=== PATIENT | male | born 1955 | race Caucasian/White ===

== ENCOUNTER 2020-10-24 17:13 | Outpatient (CLI) | payer MEDICARE, SELFPAY ==
--- NOTE | ~2020-10-24 | XR_ITS ---
EXAMINATION: XR chest 2V DATE: 10/24/2020 17:28 INDICATION: Cough and fever. TECHNIQUE: Frontal and lateral views of the chest were obtained. COMPARISON: Chest 2 views 04/18/2018, CT abdomen and pelvis 12/14/2013 FINDINGS: There are mild airspace opacities in right lower lobe. No pleural effusion or pneumothorax. The heart size is normal. Calcified right hilar lymph nodes are consistent with old granulomatous di sease. There are old healed left rib fractures. IMPRESSION: 1. Mild airspace opacities in right lower lobe, consistent with atelectasis versus pneumonia. Reviewed, dictated and finalized at location A. IMPRESSION: 1. Mild airspace opacities in right lower lobe, consistent with atelectasis josef екатерина pneumonia.
== END 2020-10-24 17:14 | disposition home or self-care (01) ==
LOC: ANHIMG 17:16
PROVIDERS: PCP Internal Medicine; Visit Provider Internal Medicine
DX: R05 Cough (principal); R91.8 Other nonspecific abnormal finding of lung field
CPT/HCPCS: 71046

== ENCOUNTER 2020-12-19 15:07 | Outpatient (CLI) | payer MEDICARE, SELFPAY ==
--- NOTE | ~2020-12-19 | CT_ITS ---
EXAMINATION: CT hip LT wo con DATE: 12/19/2020 15:36 INDICATION: Presence of left hip artificial joint. TECHNIQUE: Computed tomography (CT) of the left hip was performed without intravenous contrast. Autom ated exposure control and iterative reconstruction technique were employed. The dose-length product w as 561.04 mGy-cm. COMPARISON: CT abdomen and pelvis 12/14/2013 FINDINGS: There is a total left hip arthroplasty in near-anatomic alignment. One of the acetabular sc rews passes through the bone into the iliopsoas muscle. There is no asymmetric liner wear. No signifi cant periprosthetic lucency to suggest loosening or infection. No fracture. IMPRESSION: 1. Total left hip arthroplasty in near-anatomic alignment. Reviewed, dictated and finalized at location B.
== END 2020-12-19 15:08 | disposition home or self-care (01) ==
PROVIDERS: PCP Internal Medicine; Visit Provider Orthopaedic Surgery
DX: Z96.642 Presence of left artificial hip joint (principal)
CPT/HCPCS: 73700

== ENCOUNTER 2020-12-20 11:39 | Outpatient (CLI) | payer MEDICARE, SELFPAY ==
--- NOTE | ~2020-12-20 | NM_ITS ---
EXAMINATION: NM bone 3 phase DATE: 12/20/2020 15:17 INDICATION: Left hip pain. TECHNIQUE: 24.5 mCi Tc-99m HDP by intravenous route. Scintigrams of the pelvis and bilateral hips we re obtained in angiographic, blood pool, and delayed phases. COMPARISON: CT dated 12/19/2020 and 12/14/2013 FINDINGS: No foci of abnormal increased activity in the or proximal thighs on the lower abdomen, pelvis and pro ximal thighs on the angiographic or immediate blood pool images. On the delayed images there photopen ic defects consistent bilateral total hip arthroplasties. There is mild peripheral increased uptake a bout the femoral stems both arthroplasties, slightly more prominent on the right. There is nonspecifi c asymmetric increased uptake seen on the delayed images at the left supra-acetabular region which dillon ggests possibility of loosening although no significant periprosthetic lucency is evident on the CT i mages. IMPRESSION: 1. Nonspecific asymmetric increased uptake along the cephalad margin of the acetabular component of a left total hip arthroplasty which suggests possibility of loosening orbital no corresponding peripr osthetic lucency is seen at the bone arthroplasty interface on the prior CT. Infection or fracture is considered unlikely given the absence of significant increased uptake on the angiographic and blood pool images or evident correlate on the CT images. Reviewed, dictated and finalized at location A. IMPRESSION: 1. Nonspecific asymmetric increased uptake along the cephalad margin of the ac etabular component of a left total hip arthroplasty which suggests possibility of loosening orbital no corresponding periprosthetic lucency is seen at the bon e arthroplasty interface on the prior CT. Infection or fracture is considered u nlikely given the absence of significant increased uptake on the angiographic a nd blood pool images or evident correlate on the CT images.
== END 2020-12-20 11:40 | disposition home or self-care (01) ==
LOC: ANHIMG 11:42
PROVIDERS: PCP Internal Medicine; Visit Provider Orthopaedic Surgery
DX: T85.698A Other mechanical complication of other specified internal prosthetic devices, implants and grafts, initial encounter (principal)
CPT/HCPCS: 78315; A9561

== ENCOUNTER 2020-12-26 11:52 | Inpatient (IN) | payer MEDICARE, SELFPAY ==
[2020-12-26] VITALS (27 sets, daily range): BP systolic 96–154; BP diastolic 59–88; PULSE 60–90; RESP 11–26; TEMP 36.1–36.8; O2SAT 98–100; BMI 29.4
--- NOTE | ~2020-12-26 | CT_ITS ---
EXAMINATION: CT abdomen pelvis wo con DATE: 12/26/2020 15:23 INDICATION: Acute renal failure. TECHNIQUE: Computed tomography (CT) of the abdomen and pelvis was performed without intravenous contr ast. Automated exposure control and iterative reconstruction technique were employed. The dose-length product was 1236.06 mGy-cm. COMPARISON: CT abdomen and pelvis 12/14/2013 FINDINGS: The visualized portions of the lung bases demonstrate calcified right hilar lymph nodes, co nsistent with old granulomatous disease. No pleural effusion. The heart size is normal. There are cor onary artery calcifications. No pericardial effusion. There is bilateral gynecomastia. There is a sma ll sliding hiatal hernia. There are surgical changes in the stomach. The liver and spleen are normal. There are gallstones in the gallbladder, which is distended, likely secondary to fasting. The pancre as and adrenal glands are normal. There is a 14 mm cyst in right kidney. There is a 13 mm mass of the left kidney measuring soft tissue attenuation. There is mild left hydronephrosis and hydroureter. Th ere is a 6 mm stone in proximal left ureter. The rectum is distended and stool-filled. There is diver ticulosis of the colon without evidence of diverticulitis. There are no dilated loops of bowel. The a ppendix is normal. There are no pathologically enlarged lymph nodes. There is no free intraperitoneal fluid. There are bilateral hip arthroplasties. There is severe lumbar spondylosis. There are bridgin g endplate osteophytes at multiple levels in the spine, consistent with diffuse idiopathic skeletal h yperostosis (DISH). IMPRESSION: 1. 6 mm stone in proximal left ureter with mild left hydronephrosis and hydroureter. 2. 13 mm left kidney mass that demonstrated contrast enhancement on 12/14/2013 suspicious for neoplasm with interval increase in size. Reviewed, dictated and finalized at location A. IMPRESSION: 1. 6 mm stone in proximal left ureter with mild left hydronephrosis and hydrour eter. 2. 13 mm left kidney mass that demonstrated contrast enhancement on 12/14/2013 s uspicious for neoplasm with interval increase in size.
--- NOTE | ~2020-12-26 | XR_ITS ---
XR retrograde pyelo w/stent LT DATE: 12/26/2020 19:47 INDICATION: Left ureteral calculus. Left stent placement. TECHNIQUE: 60.2 seconds fluoroscopy time 1137.92 radcm2 COMPARISON: 12/26/2020 CT abdomen pelvis FINDINGS: There is a focal stricture at the left ureter at the upper sacral area. Left internal urinary stent placement, the proximal pigtail overlying the left renal pelvis, distal p igtail overlying the base of the urinary bladder. Vas deferens calcifications, consistent with diabetes. Bilateral total hip arthroplasty. IMPRESSION: Left internal urinary stent placement Reviewed, dictated and finalized at Location [facility]. Reviewed, dictated and finalized at location A.
--- NOTE | ~2020-12-26 | XR_ITS ---
EXAMINATION: XR abdomen/kub 1V DATE: 12/27/2020 15:55 INDICATION: Kidney stone. TECHNIQUE: A supine view of the abdomen was obtained. COMPARISON: CT abdomen and pelvis 12/26/2020 FINDINGS: There are no dilated loops of bowel. There is a left internal ureteral stent in expected po sition. There are bilateral total hip arthroplasties. IMPRESSION: 1. Left internal ureteral stent in expected position. No visible stone. Reviewed, dictated and finalized at location A.
[2020-12-26 12:27] LABS: Basophils Absolute Auto 0.1 K/mm3 (0.0-0.1); Basophils Percent Auto 0.7 % (0.2-1.2); Eosinophils Absolute Auto 0.2 K/mm3 (0-0.3); Eosinophils Percent Auto 2.6 % (0-4.4); Hematocrit 34.8 % (42.0-52.0); Immature Granulocyte Absolute 0.02 K/mm3 (0.00-0.031); Immature Granulocyte Percent A 0.3 % (0-0.5); Lymphocytes Absolute Auto 1.65 K/mm3 (0.9-3.2); Mean Corpuscular HGB Conc 31.6 g/dl (32-36); Mean Corpuscular Hemoglobin 29.6 pg (26-34); Mean Corpuscular Volume 93.5 fl (80-100); Mean Platelet Volume 10.1 fl (7.4-10.4); Monocytes Absolute Auto 0.5 K/mm3 (0.1-0.6); Neutrophils Absolute Auto 4.5 K/mm3 (1.3-6.7); Neutrophils Percent Auto 65.4 % (45.5-73.1); Platelet Count Result 211 k/mm3 (150-375); Red Blood Count 3.72 M/mm3 (4.6-6.20); Red Cell Distribution Width 15.5 % (11.5-14.5); White Blood Count 6.9 K/mm3 (4.5-10.0)
[2020-12-26 13:01] LABS: Alanine Aminotransferase 18 U/L (4-50); Albumin Level 4.7 g/dL (3.5-5.1); Alkaline Phosphatase 83 U/L (38-126); Anion Gap 13 mmol/L (8-16); Aspartate Amino Transferase 18 U/L (17-59); Bilirubin,Total 0.4 mg/dL (0.2-1.3); Blood Urea Nitrogen 120 mg/dL (9-20); Calcium 9.9 mg/dL (8.4-10.2); Carbon Dioxide 11 mmol/L (22-30); Chloride 115 mmol/L (98-107); Estimated CRCL calculation 11 ml/min; Estimated Glomerular Filt Rate 9; Glucose 135 mg/dL (65-110); Potassium 7.1 mmol/L (3.4-5.0); Sodium 139 mmol/L (137-145)
--- NOTE | 2020-12-26 13:04 | ECG_ITS ---
Measurements Intervals [place] Rate: 58 P: 33 [place]: 144 QRS: -14 QRSD: 94 T: 19 QT: 376 QTc: 370 Interpretive Statements SINUS BRADYCARDIA BASELINE ARTIFACT- I, II, III, AVR, AVL, AVF, V1, V3-V6 BORDERLINE ECG Electronically Signed On 12-26-2020 17:17:40 CDT by Herrera Lizama D.O.
--- NOTE | 2020-12-26 13:16 | PC.NURSE ---
Per edp to hold insulin and calcium until pt repeat cmp results.
--- NOTE | 2020-12-26 13:32 | ED.WEAKNESS ---
HPI - Weakness General Chief complaint: Weakness Stated complaint: weakness Time Seen by Provider: 12/26/20 13:03 Source: patient History of Present Illness HPI Narrative: Patient presents with generalized weakness. Patient reports he was diagnosed with Covid in October he recovered however since then he reports he has been feeling weak and is been getting progressively worse patient called his primary care doctor and is scheduled for a follow-up appointment however it was not for few weeks and is concerned so came to the ER for evaluation. Denies any chest pain, shortness of breath, nausea, vomiting, abdominal pain, lightheadedness Related Data Home Medications Medication Instructions Recorded Confirmed hydrochlorothiazide 25 mg PO BID 12/26/20 12/26/20 hydrocodone-acetaminophen 0.5 tablet PO Q12H PRN 12/26/20 12/26/20 Allergies Allergy/AdvReac Type Severity Reaction Status Date / Time No Known Allergies Allergy Unknown Verified 12/26/20 18:51 Review of Systems Review of Systems: CONSTITUTIONAL: Denies fever, chills, or sweats. EYES: Denies visual changes, redness, or discharge. ENT: Denies rhinorrhea, congestion, sore throat, or otalgia. CARDIOVASCULAR: Denies chest pain, palpitations, or edema. RESPIRATORY: Denies cough or dyspnea. GASTROINTESTINAL: Denies abdominal pain, nausea, vomiting, or diarrhea. GENITOURINARY: Denies dysuria or hematuria. SKIN: Denies rash or itching. MUSCULOSKELETAL: Denies back pain, joint pain, or myalgia. NEUROLOGIC: Denies headache, numbness, dizziness, or focal weakness. PSYCHIATRIC: Denies anxiety or depression. All systems reviewed & are unremarkable except as noted in HPI and below PMFSH Past Medical History Medical History Arthritis COVID-19 (10/2020) Essential hypertension Gout Obstructive sleep apnea Patient does not use CPAP. Type 2 diabetes mellitus without complications Hemoglobin A1c was 6.9% on 09/22/2020. Surgical History Surgical History History of bilateral carpal tunnel release History of bilateral hip replacements History of bilateral knee replacement History of colonoscopy with polypectomy History of esophagogastroduodenoscopy With esophageal dilatation. History of laparoscopic adjustable gastric banding History of repair of left rotator cuff Status post open reduction with internal fixation (ORIF) of fracture of ankle Right. Family History Family History Father Lung disease Mother Heart disease Sibling No problems noted. Other Family history of arthritis Family history of heart disease in male family member before age 55 Social History Social History Social History: Surrogate decision maker: Kathy Aviles, spouse. Code status: Full code. Smoking status: Never smoker Second hand tobacco smoke exposure: No Alcohol intake: current Drinks per week: 1 Substance use: current Substance use type: marijuana Additional living arrangements comments: Resides in [place] with his . Additional occupation/education comments: Retired. Spiritual care concerns: No Exam Narrative: GENERAL: Well-appearing, well-nourished, and in no acute distress. HEAD: Normocephalic, atraumatic. EYES: PERRLA and EOMI. ENT: Nares clear, no rhinorrhea or epistaxis. Mucous membranes moist. NECK: Supple. No masses. No JVD CHEST: Clear to auscultation. No respiratory distress. No wheezes rales or rhonchi HEART: Regular rate and rhythm. No murmur heard. Normal peripheral pulses. ABDOMEN: Soft, nontender, nondistended, normal active bowel sounds. EXTREMITIES: Normal range of motion. No edema. SKIN: Warm, dry, no rash. NEURO: No focal deficits. Alert and oriented x3. PSYCH: Normal mood and affect.
[2020-12-26 13:56] LABS: Alanine Aminotransferase 17 U/L (4-50); Albumin Level 4.6 g/dL (3.5-5.1); Alkaline Phosphatase 76 U/L (38-126); Anion Gap 15 mmol/L (8-16); Aspartate Amino Transferase 18 U/L (17-59); Bilirubin,Total 0.2 mg/dL (0.2-1.3); Blood Urea Nitrogen 118 mg/dL (9-20); Calcium 9.5 mg/dL (8.4-10.2); Carbon Dioxide 10 mmol/L (22-30); Chloride 111 mmol/L (98-107); Estimated CRCL calculation 11 ml/min; Estimated Glomerular Filt Rate 9; Glucose 137 mg/dL (65-110); Potassium 6.9 mmol/L (3.4-5.0); Sodium 136 mmol/L (137-145)
--- NOTE | 2020-12-26 14:22 | PC.NURSE ---
Spoke with EDP Troy about concern for not giving pt dextrose with insulin order. Per edp I just don't feel like everything needs to be IV, just have him sip on some juice, ya know? I again expressed my concern and edp gave no new orders. Apple juice provided with medications, see mar.
[2020-12-26] MEDS: INSULIN HUMAN REGULAR (*BKC) 100 UNITS/ML 10 UNITS IV PUSH (14:31)
[2020-12-26] MEDS: SODIUM POLYSTYRENE SULFONONATE 15 GM/60 ML BTL 30 GM PO (14:31)
[2020-12-26] MEDS: CALCIUM GLUCONATE 1,000 MG/10 ML VIAL 1000 MG IV PUSH (14:31)
[2020-12-26 15:14] LABS: Glucose Point of Care 123 mg/dl (65-105)
[2020-12-26 15:14] LABS: Glucose Point of Care 112 mg/dl (65-105)
--- NOTE | 2020-12-26 15:24 | PC.NURSE ---
pT ATTEMPTING UA
[2020-12-26 15:37] LABS: Magnesium 2.7 mg/dL (1.6-2.3)
[2020-12-26 16:01] LABS: Add Urine Microscopic? YES; Appearance Urine Clear (Clear); Bilirubin Urine Negative (Negative); Blood Urine 3+ (Negative); Color Urine Yellow (Yellow); Glucose Urine UA Negative (Negative); Ketones Urine Negative (Negative); Leukocyte Esterase Ur Negative LEU/UL (Negative); Nitrate Urine Negative (Negative); Protein Urine 1+ mg/dL (Negative); Specific Grav Ur 1.015 (1.001-1.035); Urobilinogen Urine 0.2 mg/dL (<2.0)
--- NOTE | 2020-12-26 16:34 | PC.NURSE ---
Attempted report to billy redding, refused, to call back.
--- NOTE | 2020-12-26 16:46 | PC.NURSE ---
Report given to billy redding for [facility] [id number]
[2020-12-26 16:50] LABS: RBC Urine 0-2 /hpf (0-2); Squamous Epithelial Cell Urine Few /hpf (Few)
--- NOTE | 2020-12-26 17:00 | PM.IMHP ---
H&P: HPI History of Present Illness Date/Time: 12/26/20 17:00 Chief Complaint: Generalized weakness. Narrative: This is a 65-year-old male with hypertension and diabetes who presented to the emergency department earlier today via private vehicle from home for evaluation of generalized weakness. He received the Zaheer and Zaheer COVID vaccine in July 2020 but unfortunately did contract COVID in October 2020. Since that time he feels as though he is just not bounce back to his usual state of health. He reports aches and pains for which he takes 400 mg of ibuprofen daily, cotton mouth causing him to feel thirsty all the time, frequent but mild nose bleeds, nausea with poor appetite, and an unintentional 25 lb weight loss. For the last couple of days he has felt increasingly weak and has been feeling lightheaded/dizzy when bending over. Yesterday he ran an errand and when he got home and walked into the house he had to sit and rest for 10 minutes before he had the energy to get back up again. He try to make an appointment with his primary care provider but was told he could not get in until after Labor Day and thus he came into the emergency room today. His vital signs were stable on arrival to the emergency department. Labs done today show an acute kidney injury with a BUN and creatinine of 120 and 6.10 respectively as well as pretty significant hyperkalemia with a potassium of 7.1 although no EKG changes were noted. A CT of the abdomen and pelvis showed a 6 mm stone in the proximal left ureter with mild left hydronephrosis and hydroureter as well as a 13 mm left kidney mass which did demonstrate contrast enhancement on CT scan on 12/14/2013, suspicious for neoplasm with interval increase in size. With further questioning he has no history of kidney stones and really has no symptoms of such at this time. Specifically he has not had dysuria, hematuria, low back pain, flank pain, or groin pain. The patient has been on lisinopril for many years and was started on hydrochlorothiazide approximately 4 months ago. He has been taking 400 mg of ibuprofen daily for quite some time. He has not noticed a change in urine output or darkening of his urine. He denies difficulties urinating and has no concerns for urinary retention. He has no known history of kidney disease or autoimmune disease. He has no known family history of kidney disease however he reports that his dad at age 47 and he had a cousin in her early 50s under similar circumstances due to ?a rare lung disease? though he does not know any specifics they may have had some kidney issues as well. Review of Systems Review of Systems: Twelve systems were reviewed with pertinent positives and negatives as per HPI. No fever, chills, or sweats. No headache. No syncope. No anosmia or dysgeusia. He denies rash and lesion. No hematuria. He has had mild aches and pains but no arthralgias or swollen/red joints. No lymphadenopathy. Except as documented, all other systems were reviewe Surrogate decision maker: Code status: [facility] Past Medical History Medical History Arthritis COVID-19 (10/2020) Essential hypertension Gout Obstructive sleep apnea Patient does not use CPAP. Type 2 diabetes mellitus without complications Hemoglobin A1c was 6.9% on 09/22/2020. Surgical History Surgical History (Updated 12/26/20 @ 22:37 by Radha Shields PA-C) History of bilateral carpal tunnel release History of bilateral hip replacements History of colonoscopy with polypectomy History of esophagogastroduodenoscopy With esophageal dilatation. History of repair of left rotator cuff History of Addison-en-Y gastric bypass Status post open reduction with internal fixation (ORIF) of fracture of ankle Right. Family History Family History (Updated 12/26/20 @ 22:40 by Radha Shields PA-C) Father , Father age 47 after a short illness and from a ?rare saud
[2020-12-26 17:39] LABS: Hemoglobin A1C 7.1 % (<5.7)
[2020-12-26 17:42] LABS: CRP < 0.5 mg/dL (<1.0); Creatine Kinase 44 U/L (55-170); Phosphorus 7.6 mg/dL (2.5-4.5)
[2020-12-26 17:46] LABS: Complement C3 112 mg/dL (88-165)
[2020-12-26 17:53] LABS: Anion Gap 12 mmol/L (8-16); Blood Urea Nitrogen 118 mg/dL (9-20); Calcium 9.6 mg/dL (8.4-10.2); Carbon Dioxide 12 mmol/L (22-30); Chloride 117 mmol/L (98-107); Estimated CRCL calculation 12 ml/min; Estimated Glomerular Filt Rate 10; Glucose 105 mg/dL (65-110); Potassium 6.6 mmol/L (3.4-5.0); Sodium 141 mmol/L (137-145)
[2020-12-26 17:53] LABS: Iron 147 ug/dL (49-181)
[2020-12-26 18:01] LABS: Alveolar/Arterial O2 Gradient 6.7 mmHg; Base Excess ABG -17.2 mEq/l (+/-2.0); Fractional Inspired Oxygen 21 %; HCO3 ABG 9.1 mEq/l (22.0-26.0); Oxygen Saturation ABG 97.4 % (95.0-100.0); Oxyhemoglobin 96.5 % THb (90.0-100.0); PO2 ABG 114.8 mmHg (80.0-100.0); PO2 FiO2 Ratio Arterial Blood 5.47 %; Total Hemoglobin 10.2 g/dL (12.0-18.0)
[2020-12-26 18:02] LABS: Percent Iron Saturation 49 % (20-50)
[2020-12-26 18:04] LABS: pH ABG 7.203 (7.350-7.450)
[2020-12-26 18:05] LABS: Device ROOM AIR; Modified Allen's Test Pass; PCO2 ABG 23.6 mmHg (35.0-45.0); Site Drawn LEFT RADIAL
--- NOTE | 2020-12-26 18:14 | ADMGEN ---
This patient, Mohan Aviles, was admitted to IMU Room 205-01 on 12-26-20 at 1706. Patient/family oriented to hospital policies and general routines including ID bracelet, bed and alarms, visiting hours, pain management, procedures, bathroom and other care routines, personal items, smoking policy, room service/diet, and visiting hours. Information on how to activate the Rapid Response Team has been discussed. Patient/Family are encouraged to report perceived risks to care and to ask questions if they do not understand what they are told or what they should do.
[2020-12-26 18:24] LABS: Thyroid Stimulating Hormone Reflex 0.472 uIU/mL (0.465-4.68)
--- NOTE | 2020-12-26 18:34 | WPDANESEPP ---
Anes - Eval Pre Procedure Procedure: cysto, stent placement Date/Time: 12/26/20 18:34 Surgeon: apolinar Pre Op Diagnosis: Acute renal failure Patient Data Age: 65 Gender: M Height: 1.78 m Weight: 93.1 kg Last Vital Signs Temp 36.4 C L 12/26/20 17:10 Pulse 67 12/26/20 18:00 Resp 14 12/26/20 17:10 BP 115/73 12/26/20 17:10 Pulse Ox 100 12/26/20 17:10 Allergies Allergy/AdvReac Type Severity Reaction Status Date / Time No Known Allergies Allergy Unknown Verified 11/01/20 11:09 Home Medications Medication Instructions Recorded Confirmed Type aspirin 81 mg tablet,delayed 81 mg PO DAILY #30 tablet 03/12/19 11/02/20 Rx release clotrimazole-betamethasone 1 1 applic TOPICAL BID #45 gm 07/08/19 11/02/20 Rx %-0.05 % topical cream valacyclovir 1 gram tablet 2,000 mg PO BID #20 tablet 07/08/19 11/02/20 Rx allopurinol 300 mg tablet 300 mg PO DAILY #90 tablet 02/12/20 11/02/20 Rx carvedilol 25 mg tablet 25 mg PO Q12H #180 tablet 03/22/20 11/02/20 Rx lisinopril 40 mg tablet 40 mg PO DAILY #90 tablet 08/04/20 11/02/20 Rx metformin 500 mg tablet 500 mg PO BID #180 tablet 10/01/20 11/02/20 Rx benzonatate 200 mg capsule 200 mg PO BID PRN #20 cap 10/23/20 11/02/20 Rx fluticasone propionate 50 2 spray INTRANASAL DAILY PRN #15.8 10/23/20 11/02/20 Rx mcg/actuation nasal ml spray,suspension budesonide-formoterol HFA 80 2 puff INHALATION Q12H #10.2 g 10/27/20 11/02/20 Rx mcg-4.5 mcg/actuation aerosol inhaler codeine 10 mg-guaifenesin 100 mg/5 10 ml PO .hs PRN #120 ml 10/31/20 11/02/20 Rx mL oral liquid hydrochlorothiazide 25 mg tablet 25 mg PO DAILY #90 tablet 11/14/20 Rx hydrocodone 7.5 mg-acetaminophen 1 tablet PO Q12H PRN #40 tablet 11/27/20 Rx 325 mg tablet Laboratory Tests 12/26/20 12/26/20 12/26/20 12:20 12:20 12:20 WBC 6.9 K/mm3 K/mm3 (4.5-10.0) RBC 3.72 M/mm3 L M/mm3 (4.6-6.20) Hgb 11.0 g/dL L g/dL (14.0-18.0) Hct 34.8 % L % (42.0-52.0) MCV 93.5 fl fl (80-100) MCH 29.6 pg pg (26-34) MCHC 31.6 g/dl L g/dl (32-36) RDW 15.5 % H % (11.5-14.5) Plt Count 211 k/mm3 k/mm3 (150-375) MPV 10.1 fl fl (7.4-10.4) Immature Gran % (Auto) 0.3 % % (0-0.5) Neut % (Auto) 65.4 % % (45.5-73.1) Lymph % (Auto) 24.0 % % (18.3-44.2) [place] % (Auto) 7.0 % % (2.6-8.5) Eos % (Auto) 2.6 % % (0-4.4) Baso % (Auto) 0.7 % % (0.2-1.2) Lymph # (Auto) 1.65 K/mm3 K/mm3 (0.9-3.2) [place] # (Auto) 0.5 K/mm3 K/mm3 (0.1-0.6) Eos # (Auto) 0.2 K/mm3 K/mm3 (0-0.3) Baso # (Auto) 0.1 K/mm3 K/mm3 (0.0-0.1) Abs Immat Gran (auto) 0.02 K/mm3 K/mm3 (0.00-0.031) Absolute Neuts (auto) 4.5 K/mm3 K/mm3 (1.3-6.7) Absolute Nucleated RBC 0.0 K/mm3 K/mm3 (0.0-0.012) Nucleated RBC % 0.0 % % (0.0-0.2) ESR Puncture Site ABG pH ABG pCO2 ABG pO2 ABG PO2/FiO2 Ratio ABG HCO3 ABG O2 Saturation ABG O2 Content ABG Base Excess A-a Gradient Oxyhemoglobin Total Hemoglobin O2 Delivery Device O2 Liters/Min FiO2 Sodium 139 mmol/L mmol/L (137-145) Potassium 7.1 mmol/L H* mmol/L (3.4-5.0) Chloride 115 mmol/L H mmol/L (98-107) Carbon Dioxide 11 mmol/L L mmol/L (22-30) Anion Gap 13 mmol/L mmol/L (8-16) BUN 120 mg/dL H mg/dL (9-20) Creatinine 6.10 mg/dL H mg/dL (0.7-1.3) Estim Creat Clear Calc 11 ml/min ml/min Estimated GFR 9 L (59 - ) Glucose 135 mg/dL H mg/dL (65-110) POC Capillary Glucose Hemoglobin A1c Lactic Acid Calcium 9.9
[2020-12-26 18:45] LABS: Folic Acid 11.6 ng/mL (2.76->20)
--- NOTE | 2020-12-26 18:50 | WPDURCON ---
Assessment and Plan Assessment and plan (1) Left ureteral calculus: Code(s): N20.1 - Calculus of ureter Status: Acute (2) Left kidney mass: Code(s): N28.89 - Other specified disorders of kidney and ureter Status: Acute (3) Hyperkalemia: Code(s): E87.5 - Hyperkalemia Status: Acute (4) Metabolic acidosis: Code(s): E87.2 - Acidosis Status: Acute Assessment and Plan: Etiology for patient's acute kidney injury is unclear and, may have nothing to do with a partial obstructing proximal ureteral stone. Regardless, we will proceed with cystoscopy and left ureteral stent placement to optimize renal function. In the future he will need a serial imaging for further evaluation of the small indeterminate lesion in his left kidney. If his renal function normalizes we will schedule either contrast enhanced CT scan or MRI scan in the future. Urology Consult Note HPI Date Seen: 12/26/20 Requesting Physician: Tawny Ch MD Primary Care Provider: Lucien Dodge DO Consult Narrative Narrative: Mohan Aviles is a 65 year old male Who I actually met once in 2013 when he was referred for evaluation of a small indeterminate left renal lesion found coincidentally on imaging studies done for abdominal pain. Follow-up contrast-enhanced MRI scan at that time revealed several simple benign cyst in his left kidney and a 1.7 cm hemorrhagic cyst in his right kidney. All findings were felt to be benign. I recommended follow-up in 6 months but he was noncompliant and I am not seeing him again in till now. He now presents with generalized weakness after having a COVID infection in October 2020. During evaluation in the ER he was found to have acute renal failure with significant uremia. His serum creatinine is elevated to 6.6 and he has both metabolic acidosis and hyperkalemia. CT scan the abdomen pelvis without contrast reveals a partially obstructing 6 mm left proximal ureteral calculus. Additionally has a 13 cm indeterminate mass in his left kidney that, reportedly, has grown since prior imaging. His right kidney appears normal. Patient denies flank pain hematuria or symptoms of UTI. Review of Systems Cardiovascular: Cardiovascular: Denies chest pain, Denies lightheadedness, Denies palpitations and Denies dyspnea Respiratory: Respiratory: Denies dyspnea Gastrointestinal: Gastrointestinal: Denies diarrhea, Denies nausea and Denies vomiting Genitourinary: Genitourinary: Denies hematuria and Denies dysuria Endocrine: Endocrine: Denies palpitations PMFSH Past Medical History Medical History Arthritis COVID-19 (10/2020) Essential hypertension Gout Obstructive sleep apnea Patient does not use CPAP. Type 2 diabetes mellitus without complications Hemoglobin A1c was 6.9% on 09/22/2020. Surgical History Surgical History History of bilateral carpal tunnel release History of bilateral hip replacements History of bilateral knee replacement History of colonoscopy with polypectomy History of esophagogastroduodenoscopy With esophageal dilatation. History of laparoscopic adjustable gastric banding History of repair of left rotator cuff Status post open reduction with internal fixation (ORIF) of fracture of ankle Right. Family History Family History Father Lung disease Mother Heart disease Sibling No problems noted. Other Family history of arthritis Family history of heart disease in male family member before age 55 Social History Social History Social History: Surrogate decision maker: Kathy Aviles, spouse. Code status: Full code. Smoking status: Never smoker Second hand tobacco smoke exposure: No Alcohol intake: kar
[2020-12-26] MEDS: SODIUM BICARBONATE 8.4% 50 MEQ/50 ML SYRINGE 100 MEQ IV PUSH (18:53)
[2020-12-26 19:02] LABS: Erythrocyte Sedimentation Rate 65 mm/hr (0-20)
--- NOTE | 2020-12-26 19:05 | WPDHPUPDATE1 ---
History and Physical Update Update Date/Time: 12/26/20 19:05 History and Physical has been reviewed, including an updated exam of the patient. There are NO changes in the patient's condition. Risks, benefits, and alternatives have been discussed and questions answered. Patient agrees to proceed with procedure.
--- NOTE | 2020-12-26 19:24 | WPDANESEFPP ---
Anes - Eval Final PreProcedure Day of Procedure 12/26/20 19:24 Patient weight: overweight Heart: regular rate and rhythm Lungs: clear to auscultation Airway: Mallampati scale class II Neurological: alert and oriented Last oral intake: >/= 8 hours ASA classification: III Emergent: yes Anesthetic plan: proceed Anesthesia type and monitoring: general GIVS and standard monitoring Informed Consent: The patient's anesthetic plan and its attendant risks and benefits were discussed with the patient/family/POA. Questions were solicited and answers provided to the satisfaction of the patient/family/POA.
[2020-12-26] MEDS: LIDOCAINE HCL 2% GEL UROJET 10 ML PKG MUCOUS MEM (19:36)
[2020-12-26] MEDS: ceFAZolin SODIUM 1 GM VIAL IV PUSH (19:36)
--- NOTE | 2020-12-26 19:46 | W.PM.PROC2 ---
Procedure Note - Detailed Date of Procedure 12/26/20 Pre-op Diagnosis Acute renal failure, left ureteral stone Post-op Diagnosis same Procedure Performed Cystoscopy, left retrograde pyelography and left ureteral stent placement Surgeon Lopez Ch MD Description of Procedure Pt. is brought to the operative suite where he was prepped and draped in routine sterile fashion while in a dorsal lithotomy position. 2% xylocaine jelly was introduced ensure than systemic sedation is administered per the anesthesia department. Cystoscopy is undertaken with the 21 F rigid cystoscope. There was no urethral stricture minimal prostatic hyperplasia. The bladder mucosa is normal. There was no intravesical foreign body neoplasm. As a single orthotopic ureteral orifice bilaterally. Angiographic catheter was used to obtain a left retrograde pyelogram to ensure appropriate placement of the stent. He has a complete collecting system. The proximal ureteral stone cannot be identified on fluoroscopy but there was significant bowel gas. A 0.035 in glidewire was advanced in the renal pelvis in a 6 F variable length stent is positioned with the proximal coil in renal pelvis and distal coil in the bladder. Scopes and wires removed and a 16 F urethral catheter was placed to drainage. The patient tolerated the procedure well was taken recovery in good condition. Drains Yes Packing No Pathology none sent Complications No immediate complications Condition stable Disposition PACU
[2020-12-26] MEDS: LACTATED RINGERS 1,000 ML 30 ML IV CONT (19:48)
[2020-12-26] MEDS: fentaNYL CITRATE INJ (*CRX) 100 MCG/2 ML VIAL 25 MCG IV PUSH ×4 (20:07→20:21)
[2020-12-26] MEDS: SODIUM BICARBONATE 8.4% 75 MEQ in SODIUM CHLORIDE 0.45% 1,000 ML 100 MEQ IV CONT (20:39)
[2020-12-26 21:53] LABS: Glucose Point of Care 112 mg/dl (65-105)
[2020-12-26] MEDS: HYDROcodone/acetaminophen (*CRX) 5-325 MG TABLET 1 TAB PO (22:24)
[2020-12-26 23:12] LABS: Potassium Urine Random 11.3 meq/L; Sodium Urine Random 90 meq/L
[2020-12-26 23:30] LABS: Creatinine Urine 53.7 mg/dL
[2020-12-26 23:52] LABS: Total Protein Urine Random 360 mg/dL; Ur Ttl Prot Creatinine Ratio 6.58 mg/mg (0-0.20)
[2020-12-27] VITALS (13 sets, daily range): BP systolic 77–122; BP diastolic 57–80; PULSE 72–92; RESP 12–18; TEMP 36.1–36.9; O2SAT 96–100
[2020-12-27 00:22] LABS: Anion Gap 11 mmol/L (8-16); Blood Urea Nitrogen 118 mg/dL (9-20); Calcium 9.1 mg/dL (8.4-10.2); Carbon Dioxide 14 mmol/L (22-30); Chloride 114 mmol/L (98-107); Estimated CRCL calculation 14 ml/min; Estimated Glomerular Filt Rate 12; Glucose 119 mg/dL (65-110); Potassium 5.7 mmol/L (3.4-5.0); Sodium 139 mmol/L (137-145)
[2020-12-27 00:49] LABS: Eosinophil Urine None Seen % (None Seen)
[2020-12-27 05:00] LABS: Hematocrit 28.6 % (42.0-52.0); Hemoglobin 9.2 g/dL (14.0-18.0); Mean Corpuscular HGB Conc 32.2 g/dl (32-36); Mean Corpuscular Hemoglobin 29.1 pg (26-34); Mean Corpuscular Volume 90.5 fl (80-100); Mean Platelet Volume 10.6 fl (7.4-10.4); Platelet Count Result 179 k/mm3 (150-375); Red Blood Count 3.16 M/mm3 (4.6-6.20); Red Cell Distribution Width 15.2 % (11.5-14.5); White Blood Count 5.4 K/mm3 (4.5-10.0)
[2020-12-27 05:19] LABS: Albumin Level 3.9 g/dL (3.5-5.1); Anion Gap 11 mmol/L (8-16); Blood Urea Nitrogen 110 mg/dL (9-20); Calcium 8.9 mg/dL (8.4-10.2); Carbon Dioxide 15 mmol/L (22-30); Chloride 114 mmol/L (98-107); Estimated CRCL calculation 14 ml/min; Estimated Glomerular Filt Rate 12; Glucose 94 mg/dL (65-110); Magnesium 2.3 mg/dL (1.6-2.3); Phosphorus 6.3 mg/dL (2.5-4.5); Potassium 5.5 mmol/L (3.4-5.0); Sodium 140 mmol/L (137-145)
[2020-12-27] MEDS: HYDROcodone/acetaminophen (*CRX) 5-325 MG TABLET 1 TAB PO ×3 (05:35→23:40)
[2020-12-27] MEDS: SODIUM BICARBONATE 8.4% 75 MEQ in SODIUM CHLORIDE 0.45% 1,000 ML 100 MEQ IV CONT ×2 (07:58→18:37)
[2020-12-27 08:08] LABS: Glucose Point of Care 92 mg/dl (65-105)
[2020-12-27 11:58] LABS: Glucose Point of Care 148 mg/dl (65-105)
--- NOTE | 2020-12-27 13:01 | WPDANESPN ---
Anes - Prog Note Post-Op Date/Time: 12/27/20 13:01 Cardiovascular status: normal Respiratory status: normal Airway patency: baseline Mental status: baseline Post-Op hydration status: normal Vital Signs: Last Vital Signs Temp 98.5 F 12/27/20 07:51 Pulse 83 12/27/20 07:51 Resp 16 12/27/20 07:51 BP 100/70 12/27/20 08:00 Pulse Ox 96 12/27/20 08:54 Pain Score (VAS): 2/10 I/O: Intake & Output 12/26/20 12/27/20 12/27/20 23:59 07:59 15:59 Intake Total 200 2175 360 Output Total 1300 Balance 200 875 360 Laboratory Tests 12/27/20 04:35 12/27/20 04:35 12/26/20 12/26/20 12/26/20 12:20 12:20 13:14 WBC RBC Hgb Hct MCV MCH MCHC RDW Plt Count MPV ESR Puncture Site ABG pH ABG pCO2 ABG pO2 ABG PO2/FiO2 Ratio ABG HCO3 ABG O2 Saturation ABG O2 Content ABG Base Excess A-a Gradient Oxyhemoglobin Total Hemoglobin O2 Delivery Device O2 Liters/Min FiO2 Sodium 139 136 L Potassium 7.1 H* 6.9 H* Chloride 115 H 111 H Carbon Dioxide 11 L 10 L Anion Gap 13 15 BUN 120 H 118 H Creatinine 6.10 H 6.20 H Estim Creat Clear Calc 11 11 Estimated GFR 9 L 9 L Glucose 135 H 137 H POC Capillary Glucose Hemoglobin A1c Lactic Acid Calcium 9.9 9.5 Phosphorus Magnesium 2.7 H Iron TIBC % Saturation Ferritin Total Bilirubin 0.4 0.2 AST 18 18 ALT 18 17 Alkaline Phosphatase 83 76 Total Creatine Kinase C-Reactive Protein Total Protein 8.0 8.0 Albumin 4.7 4.6 Vitamin B12 Folate TSH (Reflex) Urine Color Urine Appearance Urine pH Ur Specific Henning Urine Protein Urine Glucose (UA) Urine Ketones Ur Blood (Man) Urine Nitrate Urine Bilirubin Urine Urobilinogen Leukocyte Esterase Rfl Urine RBC Ur Squamous Epith Cells Urine Eosinophils Ur Random Creatinine U Random Total Protein Ur Random Sodium Ur Random Potassium Ur Random Chloride U Random Chloride/Creat Urine Creatinine Protein/Creat Ratio 2 Cryoglobulin % Cryoglobulin Qualit NIA Screen ANCA Screen Glomerular Base Memb Ab Complement C3 Complement C4 Tot Complement (CH50) Anti-Streptolysin Scrn 08/24/21 08/24/21 08/24/21 14:30 15:12 15:35 WBC RBC Hgb Hct MCV MCH MCHC RDW Plt Count MPV ESR Puncture Site ABG pH ABG pCO2 ABG pO2 ABG PO2/FiO2 Ratio ABG HCO3 ABG O2 Saturation ABG O2 Content ABG Base Excess A-a Gradient Oxyhemoglobin Total Hemoglobin O2 Delivery Device O2 Liters/Min FiO2 Sodium Potassium Chloride Carbon Dioxide Anion Gap BUN Creatinine Estim Creat Clear Calc Estimated GFR Glucose POC Capillary Glucose 112 H 123 H Hemoglobin A1c Lactic Acid Calcium Phosphorus Magnesium Iron TIBC % Saturation Ferritin Total Bilirubin AST ALT Alkaline Phosphatase Total Creatine Kinase C-Reactive Protein Total Protein Albumin Vitamin B12 Folate TSH (Reflex) Urine Color Yellow Urine Appearance Clear Urine pH 5.0 Ur Specific Henning 1.015 Urine Protein 1+ H Urine Glucose (UA) Negative Urine Ketones Negative Ur Blood (Man) 3+ H Urine Nitrate Negative Urine Bilirubin Negative Urine Urobilinogen 0.2 Leukocyte Esterase Rfl Negative Urine RBC 0-2 Ur Squamous Epith Cells Few Urine Eosinophils Ur Random Creatinine U Random Total Protein Ur Random Sodium Ur Random Potassium Ur Random Chloride U Random Chloride/Creat Urine Creatinine Protein/Creat Ratio 2 Cryoglobulin % Cryoglobulin Qualit NIA Screen ANCA Screen Glomerular Base Memb Ab Complement C3 Complement C4 Tot Complement
--- NOTE | 2020-12-27 14:07 | PM.IMPN ---
Progress Note: A&P Assessment and Plan (1) Acute kidney injury: Code(s): N17.9 - Acute kidney failure, unspecified Status: Acute Assessment and Plan: Precipitating etiology is not clear at this juncture with broad differential diagnosis. He does not appear overtly dehydrated though his blood pressures have been on the lower side of normal and his appetite has not been great lately. CT shows a left ureteral stone with mild hydroureteronephrosis though I doubt that is the main culprit. Urinalysis shows 1+ protein and 3+ blood which can be seen with nephritis. He has been taking ibuprofen 400 mg daily for quite some time. He is also on a thiazide diuretic as well as an REAGAN-inhibitor. He is diabetic and could have diabetic nephropathy though his diabetes has been historically very well controlled. Left kidney mass noted but is quite small. Renal ultrasound as well as several urine and blood tests have been ordered for further evaluation. Dr. Shane has been consulted and his input is greatly appreciated. Renal function is improved today continue IV hydration as ordered. Nephrology on board CK level is normal Baseline creatinine on September 22 was 1.3 Admission creatinine of 6.1 Currently at 4.[address] continue to monitor intake and output currently non-oliguric have made 1300 cc of urine output so far (2) Hyperkalemia: Code(s): E87.5 - Hyperkalemia Status: Acute Assessment and Plan: Secondary to acute renal failure and metabolic acidosis. He was treated for hyperkalemia in the emergency department with repeat BMP pending at this time. No significant EKG changes though he has mild bradycardia. Hyperkalemia has resolved (3) Metabolic acidosis: Code(s): E87.2 - Acidosis Status: Acute Assessment and Plan: Presumably secondary to renal failure. Depending on ABG, may consider bicarbonate drip. Continue on bicarb drip (4) Normocytic anemia: Code(s): D64.9 - Anemia, unspecified Status: Acute Assessment and Plan: Iron studies not suggestive of iron deficiency vitamin B12 is low folic acid is normal Hemoglobin slightly low today likely due to the hemodilution (5) Left ureteral calculus: Code(s): N20.1 - Calculus of ureter Status: Acute Assessment and Plan: 6 mm stone noted in the proximal left ureter with mild left hydro ureteral nephrosis. Patient has no symptoms of such. Neurology has been consulted for this and had a cystoscopy with stone extraction and stent placement (6) Left kidney mass: Code(s): N28.89 - Other specified disorders of kidney and ureter Status: Acute Assessment and Plan: 13 mm left kidney mass with interval increase when compared to scan in December 2013. Urology consulted and Dr. Ch follow-up as an outpatient basis (7) Essential hypertension: Code(s): I10 - Essential (primary) hypertension Status: Acute Assessment and Plan: Blood pressures were reviewed and they are stable, and fact on the low end of normal. Antihypertensives currently on hold. A1c of 7.1 (8) Type 2 diabetes mellitus without complications: Code(s): E11.9 - Type 2 diabetes mellitus without complications Status: Acute Assessment and Plan: Recent A1c was 6.7%. Hold metformin due to renal failure. Initiate sliding scale insulin, Accu-Cheks, and hypoglycemic protocol. Subjective Date/time seen: 12/27/20 14:07 Interval history: Feels great today appetite is better denies any abdominal pain no fever chills Review of Systems Review of Systems: All systems reviewed & are unremarkable except as noted in HPI and below (HPI) Exam Narrative: General: Well-developed male in no acute distress. HEENT: Normocephalic, atraumatic. Neck: Supple. No JVD or lymphadenopathy. Respiratory: Respirations are nonlabored. Lungs are clear to auscultation bilaterally. Cardiovascular
--- NOTE | 2020-12-27 14:40 | WPDUROPN2 ---
Progress Note: A&P Assessment and Plan (1) Left kidney mass: Code(s): N28.89 - Other specified disorders of kidney and ureter Status: Acute Assessment and Plan: Will get an MRI of the left renal mass to further assess. Unable to do a CT d/t creatinine. (2) Left ureteral calculus: Code(s): N20.1 - Calculus of ureter Status: Acute Assessment and Plan: Will plan for stone management with a left lithotripsy in [address] Ch, stent will remain in until 2 weeks after that surgery. Ok to remove velasquez. No further stone management at this time, urine will be intermittently cloudy and bloody from the stent which is an expected finding. Subjective Subjective Date/Time Seen: 12/27/20 14:40 POD #1 Cystoscopy, left ureteroscopy with stent placement, left retrograde pyelogram. Patient is resting comfortably, he notes improvement from yesterday with pain and creatinine is improved as well at 4.8 from 7. He notes that his creatinine is normally around 4 at baseline. Review of Systems Cardiovascular: Cardiovascular: Denies chest pain Respiratory: Respiratory: Reports no additional respiratory complaints Gastrointestinal: Gastrointestinal: Denies abdominal pain, Denies nausea and Denies vomiting Genitourinary: Genitourinary: Denies hematuria and Denies flank pain Exam Resp: Effort & Inspection: normal respiratory effort Cardio: Rate: regular rate GI: GI Palp: Yes Soft to palpation and No Tenderness to palpation present (GI) : General: Yes no CVA tenderness Urinary Catheter: Urinary Catheter: patent and draining and urine clear Extrem: General: no edema Objective Data Vital Signs Vital Signs: Vital Signs - 24 hr 12/26/20 15:02 12/26/20 15:43 12/26/20 15:44 Temperature Pulse Rate 73 68 Respiratory Rate 12 18 12 Blood Pressure 102/70 Pulse Oximetry 100 100 100 12/26/20 15:45 12/26/20 16:00 12/26/20 16:01 Temperature Pulse Rate 65 65 64 Respiratory Rate 11 L 12 13 Blood Pressure 105/67 Pulse Oximetry 100 99 99 12/26/20 16:26 12/26/20 16:30 12/26/20 17:10 Temperature 97.5 F L Pulse Rate 64 61 67 Respiratory Rate 14 12 14 Blood Pressure 115/73 Pulse Oximetry 99 99 100 12/26/20 17:15 12/26/20 18:00 12/26/20 19:23 Temperature 97.0 F L Pulse Rate 71 67 66 Respiratory Rate 20 Blood Pressure 145/67 H Pulse Oximetry 100 12/26/20 19:48 12/26/20 20:00 12/26/20 20:15 Temperature 97.0 F L Pulse Rate 90 84 82 Respiratory Rate 16 20 20 Blood Pressure 147/80 H 143/88 H 154/73 H Pulse Oximetry 100 100 100 12/26/20 20:29 12/26/20 22:00 12/26/20 23:59 Temperature 98.3 F Pulse Rate 81 86 89 Respiratory Rate 16 Blood Pressure 105/70 Pulse Oximetry 98 12/27/20 00:00 12/27/20 00:01 12/27/20 01:47 Temperature Pulse Rate 87 89 83 Respiratory Rate Blood Pressure Pulse Oximetry 12/27/20 04:00 12/27/20 05:49 12/27/20 07:51 Temperature 98.2 F 98.5 F Pulse Rate 92 89 83 Respiratory Rate 16 16 Blood Pressure 109/58 L 77/57 L Pulse Oximetry 100 98 12/27/20 07:56 12/27/20 08:00 12/27/20 08:54 Temperature Pulse Rate Respiratory Rate Blood Pressure 110/80 100/70 Pulse Oximetry 96 Intake/Output Intake/Output: Intake & Output 12/24/20 12/25/20 12/26/20 12/27/20 23:59 23:59 23:59 23:59 Intake Total 200 2535 Output Total 1300 Balance 200 1235 Meds/Results Medications: Active Medications Generic Name Dose Route Start Last Admin Trade Name Freq PRN Reason Stop Dose Admin Hydrocodone Bitart/Acetaminophen 1 tab 12/26/20 21:51 12/27/20 12:45 Hydrocodone/Acetaminophen (*Crx) 5-325 Mg Tablet PO 1 tab Q4H PRN Administration Pain Rated 4-6 Carvedilol 25 mg 12/26/20 23:20 12/27/20 08:10 Carvedilol 25 Mg Tablet PO Not Given BIDWM MARGARITA Dextrose 12.5 gm 12/26/20 17:04 Dextrose 50% 25 Gm/50 Ml Syringe IV PUSH PRN PRN Hypoglyce
[2020-12-27 15:52] LABS: Glucose Point of Care 132 mg/dl (65-105)
--- NOTE | 2020-12-27 15:58 | PC.NURSE ---
Pt med/surg status- room received on med/surg-room 301- pt moved via bed accompanied by staff - report given to Doreen MILLER- personal belongings sent with pt
--- NOTE | 2020-12-27 16:12 | PC.NURSE ---
This patient, Mohan Aviles, was received from IMU on 12/27/20 at 1610. Patient/family oriented to unit policies and routines. Report from Rosario at 1540.
--- NOTE | 2020-12-27 16:44 | PM.CNNEP ---
Assessment and Plan Assessment and plan (1) Acute kidney injury: Code(s): N17.9 - Acute kidney failure, unspecified Status: Acute Assessment and Plan: due to prerenal factors along with obnstruction renal function improving with ureteral stent placement and IVF hydration; cannot discount NSAID use as well follow trend of labs and UOP (2) Hyperkalemia: Code(s): E87.5 - Hyperkalemia Status: Acute Assessment and Plan: due to #1 improving s/p medical management and IVFs follow trend (3) Metabolic acidosis: Code(s): E87.2 - Acidosis Status: Acute Assessment and Plan: due to #1 improving/compensating with bicarb fluids follow CO2 levels (4) Left ureteral calculus: Code(s): N20.1 - Calculus of ureter Status: Acute Assessment and Plan: s/p ureteral stent placement good urine output noted Urology following (5) Left kidney mass: Code(s): N28.89 - Other specified disorders of kidney and ureter Status: Acute Assessment and Plan: as noted by admission imaging Urology following -- likely outpatient management (6) Essential hypertension: Code(s): I10 - Essential (primary) hypertension Status: Acute Assessment and Plan: reasonable control at this time follow trend of hemodynamics (7) Diabetes: Code(s): E11.9 - Type 2 diabetes mellitus without complications Status: Acute Assessment and Plan: follow accuchecks glycemic control Long and extensive discussion (> 20 minutes) with patient and his at bedside regarding the above issues and tentative plan of care as outlined; they appeared to voice understanding. Will continue to follow. History of Present Illness Reason for Consult Consult date: 12/27/20 Reason for consult: acute renal failure Chief Complaint Chief complaint: Acute renal failure History of Present Illness Narrative: The patient is a 65-year-old male with a past medical history as outlined below who presented to [facility] Emergency room yesterday for further evaluation of generalized weakness. He reports that he received his COVID vaccination in July of 2020 but despite this, still contracted COVID in October of 2020. Since that time, he states that he felt he has felt that he he has been unable to get back to his usual health with multiple symptoms including generalized aches and pains, dry mouth, nausea, poor appetite, and an unintentional 25 lb weight loss. More recently, in the last couple of days, he has noticed increased weakness and fatigue in association with lightheadedness/dizziness. Doing simple activities of daily living including running errands to and from his house has significantly drained his energy level to the point where he has to sit 10 - 20 minutes before can get up and do anything again. He tried to make an appointment to see his primary care physician but was told that he would be unable to be seen until after Labor Day so he came to the ER for further evaluation. Workup and evaluation emergency room demonstrated the patient to be hemodynamically stable but routine blood test demonstrated a marked decline in his kidney function with a BUN of 120 and a creatinine of 6.1 in association with significant/severe hyperkalemia of 7.1. He did not have any EKG changes but he did receive the medical cocktail for hyperkalemia given these findings. When the ER physician contacted me regarding his laboratory abnormalities including severe hyperkalemia I instructed them to do some type of imaging study as I was concerned that he may have some type of at anatomical issue going on that may have cause such a degree of renal dysfunction in just a short appeared of time. I was never informed of what the CT scan showed but apparently it demonstrated 6 mm stone in the proximal left ureter in association with mild left hydronephrosis /hydrouret
[2020-12-27 17:43] LABS: Glucose Point of Care 106 mg/dl (65-105)
[2020-12-27 20:27] LABS: Glucose Point of Care 112 mg/dl (65-105)
[2020-12-27] MEDS: ONDANSETRON INJ 4 MG/2 ML VIAL IV PUSH (21:28)
[2020-12-28] MEDS: SODIUM BICARBONATE 8.4% 75 MEQ in SODIUM CHLORIDE 0.45% 1,000 ML 100 MEQ IV CONT ×2 (05:17→18:49)
[2020-12-28 05:36] VITALS: BP 105/71; PULSE 66; RESP 18; TEMP 36.4; O2SAT 98
[2020-12-28 06:27] LABS: Basophils Percent Auto 0.4 % (0.2-1.2); Eosinophils Absolute Auto 0.1 K/mm3 (0-0.3); Hematocrit 25.5 % (42.0-52.0); Hemoglobin 8.3 g/dL (14.0-18.0); Immature Granulocyte Absolute 0.01 K/mm3 (0.00-0.031); Immature Granulocyte Percent A 0.2 % (0-0.5); Lymphocytes Absolute Auto 1.66 K/mm3 (0.9-3.2); Lymphocytes Percent Auto 37.1 % (18.3-44.2); Mean Corpuscular HGB Conc 32.5 g/dl (32-36); Mean Corpuscular Hemoglobin 28.9 pg (26-34); Mean Corpuscular Volume 88.9 fl (80-100); Mean Platelet Volume 11.2 fl (7.4-10.4); Monocytes Absolute Auto 0.4 K/mm3 (0.1-0.6); Monocytes Percent Auto 9.2 % (2.6-8.5); Neutrophils Absolute Auto 2.3 K/mm3 (1.3-6.7); Neutrophils Percent Auto 51.1 % (45.5-73.1); Platelet Count Result 161 k/mm3 (150-375); Red Blood Count 2.87 M/mm3 (4.6-6.20); Red Cell Distribution Width 15.1 % (11.5-14.5); White Blood Count 4.5 K/mm3 (4.5-10.0)
[2020-12-28 06:49] LABS: Alanine Aminotransferase 12 U/L (4-50); Albumin Level 3.7 g/dL (3.5-5.1); Alkaline Phosphatase 67 U/L (38-126); Anion Gap 11 mmol/L (8-16); Aspartate Amino Transferase 16 U/L (17-59); Bilirubin,Total 0.2 mg/dL (0.2-1.3); Blood Urea Nitrogen 87 mg/dL (9-20); Carbon Dioxide 19 mmol/L (22-30); Chloride 106 mmol/L (98-107); Estimated CRCL calculation 22 ml/min; Estimated Glomerular Filt Rate 20; Glucose 119 mg/dL (65-110); Phosphorus 5.4 mg/dL (2.5-4.5); Potassium 4.4 mmol/L (3.4-5.0); Sodium 136 mmol/L (137-145)
[2020-12-28 08:50] LABS: Glucose Point of Care 97 mg/dl (65-105)
[2020-12-28 09:22] VITALS: PULSE 72
[2020-12-28] MEDS: carvediloL 25 MG TABLET PO ×2 (09:22→17:14)
[2020-12-28 10:46] VITALS: BMI 29.9
[2020-12-28 12:05] LABS: Glucose Point of Care 177 mg/dl (65-105)
--- NOTE | 2020-12-28 13:40 | WPDUROPN2 ---
Progress Note: A&P Assessment and Plan (1) Left kidney mass: Code(s): N28.89 - Other specified disorders of kidney and ureter Status: Acute Assessment and Plan: Unable to further evaluate with MRI or CT until creatinine returns to normal. (2) Left ureteral calculus: Code(s): N20.1 - Calculus of ureter Status: Acute Assessment and Plan: Not visible on KUB, will discuss with Dr. Ch his half-way plan or the need for a repeat CT, however lithotripsy is not an option at this time. Left stent in place. Subjective Subjective Date/Time Seen: 12/28/20 13:40 POD #2 Cystoscopy, left ureteroscopy with stent placement, left retrograde pyelogram. Patient is resting comfortably, he notes improvement from pain and creatinine is improved as well at 3.10 today, it was 1.35 in 09/2020. Review of Systems Cardiovascular: Cardiovascular: Denies chest pain Respiratory: Respiratory: Reports no additional respiratory complaints Gastrointestinal: Gastrointestinal: Denies abdominal pain, Denies nausea and Denies vomiting Genitourinary: Genitourinary: Denies hematuria, Denies dysuria, Denies flank pain and Denies urinary frequency Exam Resp: Effort & Inspection: normal respiratory effort Cardio: Rate: regular rate GI: GI Palp: Yes Soft to palpation and No Tenderness to palpation present (GI) : General: Yes no CVA tenderness Extrem: General: no edema Objective Data Vital Signs Vital Signs: Vital Signs - 24 hr 12/27/20 15:59 12/27/20 16:23 12/27/20 17:23 Temperature 98 F 97.0 F L Pulse Rate 78 72 Respiratory Rate 12 18 Blood Pressure 122/60 102/58 L Pulse Oximetry 97 99 12/27/20 21:53 12/28/20 05:36 12/28/20 09:22 Temperature 98.2 F 97.6 F Pulse Rate 77 66 72 Respiratory Rate 17 18 Blood Pressure 116/70 105/71 Pulse Oximetry 99 98 Intake/Output Intake/Output: Intake & Output 12/25/20 12/26/20 12/27/20 12/28/20 23:59 23:59 23:59 23:59 Intake Total 200 3810 1565 Output Total 3050 1400 Balance 200 760 165 Meds/Results Medications: Active Medications Generic Name Dose Route Start Last Admin Trade Name Freq PRN Reason Stop Dose Admin Hydrocodone Bitart/Acetaminophen 1 tab 12/26/20 21:51 12/27/20 23:40 Hydrocodone/Acetaminophen (*Crx) 5-325 Mg Tablet PO 1 tab Q4H PRN Administration Pain Rated 4-6 Carvedilol 25 mg 12/26/20 23:20 12/28/20 09:22 Carvedilol 25 Mg Tablet PO 25 mg BIDWM MARGARITA Administration Dextrose 12.5 gm 12/26/20 17:04 Dextrose 50% 25 Gm/50 Ml Syringe IV PUSH PRN PRN Hypoglycemia Protocol Glucagon 1 mg 12/26/20 17:04 Glucagon For Inj 1 Mg Vial IM PRN PRN Hypoglycemia Protocol Glucose 15 gm 12/26/20 17:04 Glucose Oral Gel 15 Gm Of Glucse In 37.5 Gm Tube PO PRN PRN Hypoglycemia Protocol Dextrose 1,000 mls @ 100 mls/hr 12/26/20 17:04 Dextrose 5% 1,000 Ml IVPB PRN PRN Hypoglycemia Protocol Sodium Bicarbonate 75 meq/ 1,075 mls @ 100 mls/hr 12/26/20 18:40 12/28/20 06:12 Sodium Chloride IV CONT Not Given .[id number] [facility] Insulin Aspart 2 - 5 units 12/27/20 08:00 12/28/20 09:23 Insulin Aspart (*Bkc) 100 Units/Ml SUB-Q Not Given TIDWM [facility] Protocol Ondansetron HCl 4 mg 12/26/20 19:18 12/27/20 21:28 Ondansetron Inj 4 Mg/2 Ml Vial IV PUSH 4 mg ONCE PRN Administration Nausea Radiology Results: ITS Impressions Abdomen/Pelvis CT 12/26/20 15:31 IMPRESSION: 1. 6 mm stone in proximal left ureter with mild left hydronephrosis and hydroureter. 2. 13 mm left kidney mass that demonstrated contrast enhancement on 12/14/2013 suspicious for neoplasm with interval increase in size. Retrograde Pyelogram 12/26/20 20:17 IMPRESSION: Left internal urinary stent placement Abdomen X-Ray 12/27/20 15:59 IMPRESSION: 1. Left internal ureteral stent in expected position. No visible stone.
[2020-12-28 14:00] VITALS: BP 113/70; PULSE 69; RESP 16; TEMP 36.6; O2SAT 98
[2020-12-28] MEDS: ONDANSETRON INJ 4 MG/2 ML VIAL IV PUSH (14:15)
--- NOTE | 2020-12-28 14:31 | PM.PNNEP ---
Progress Note: A&P Assessment and Plan (1) Acute kidney injury: Code(s): N17.9 - Acute kidney failure, unspecified Status: Acute Assessment and Plan: due to prerenal factors along with obnstruction renal function improving with ureteral stent placement and IVF hydration; cannot discount NSAID use as well follow trend of labs and UOP (2) Hyperkalemia: Code(s): E87.5 - Hyperkalemia Status: Acute Assessment and Plan: due to #1 improving s/p medical management and IVFs follow trend (3) Metabolic acidosis: Code(s): E87.2 - Acidosis Status: Acute Assessment and Plan: due to #1 improving/compensating with bicarb fluids follow CO2 levels (4) Left ureteral calculus: Code(s): N20.1 - Calculus of ureter Status: Acute Assessment and Plan: s/p ureteral stent placement good urine output noted Urology following (5) Left kidney mass: Code(s): N28.89 - Other specified disorders of kidney and ureter Status: Acute Assessment and Plan: as noted by admission imaging Urology following -- likely outpatient management (6) Essential hypertension: Code(s): I10 - Essential (primary) hypertension Status: Acute Assessment and Plan: reasonable control at this time follow trend of hemodynamics (7) Diabetes: Code(s): E11.9 - Type 2 diabetes mellitus without complications Status: Acute Assessment and Plan: follow accuchecks glycemic control Will continue to follow. Subjective Date/time seen: 12/28/20 14:31 Renal function continues to slowly improve with current therapy; no apparent distress to report at the time of my visit other than some mild nausea; no issues/events overnight or earlier this AM. Exam Narrative: General: WD/WN male in NAD Heart: normal S1 and S2; no rub Lungs: clear to auscultation Abdomen: soft, nontender, nondistended, positive bowel sounds Extremities: no cyanosis or clubbing; no edema Skin: warm and dry Objective Data Vital Signs Vital Signs: Vital Signs Temp Pulse Resp BP Pulse Ox 12/28/20 14:00 36.6 C 69 16 113/70 98 12/28/20 09:22 72 12/28/20 05:36 36.4 C 66 18 105/71 98 12/27/20 21:53 36.8 C 77 17 116/70 99 12/27/20 17:23 36.1 C L 72 18 99 Intake/Output Intake/Output: Intake & Output 12/25/20 12/26/20 12/27/20 12/28/20 23:59 23:59 23:59 23:59 Intake Total 200 3810 1805 Output Total 3050 1400 Balance 200 760 405 Meds/Results Medications: Active Medications Generic Name Dose Route Start Last Admin Trade Name Freq PRN Reason Stop Dose Admin Hydrocodone Bitart/Acetaminophen 1 tab 12/26/20 21:51 12/27/20 23:40 Hydrocodone/Acetaminophen (*Crx) 5-325 Mg Tablet PO 1 tab Q4H PRN Administration Pain Rated 4-6 Carvedilol 25 mg 12/26/20 23:20 12/28/20 09:22 Carvedilol 25 Mg Tablet PO 25 mg BIDWM MARGARITA Administration Dextrose 12.5 gm 12/26/20 17:04 Dextrose 50% 25 Gm/50 Ml Syringe IV PUSH PRN PRN Hypoglycemia Protocol Glucagon 1 mg 12/26/20 17:04 Glucagon For Inj 1 Mg Vial IM PRN PRN Hypoglycemia Protocol Glucose 15 gm 12/26/20 17:04 Glucose Oral Gel 15 Gm Of Glucse In 37.5 Gm Tube PO PRN PRN Hypoglycemia Protocol Dextrose 1,000 mls @ 100 mls/hr 12/26/20 17:04 Dextrose 5% 1,000 Ml IVPB PRN PRN Hypoglycemia Protocol Sodium Bicarbonate 75 meq/ 1,075 mls @ 100 mls/hr 12/26/20 18:40 12/28/20 06:12 Sodium Chloride IV CONT Not Given .[id number] [facility] Insulin Aspart 2 - 5 units 12/27/20 08:00 12/28/20 14:15 Insulin Aspart (*Bkc) 100 Units/Ml SUB-Q Not Given TIDWM [facility] Protocol Ondansetron HCl 4 mg 12/28/20 14:02 12/28/20 14:15 Ondansetron Inj 4 Mg/2 Ml Vial IV PUSH 4 mg Q6H PRN Administration Nausea And Vomiting Radiology Results: ITS Im
--- NOTE | 2020-12-28 14:31 | P.PNNP_ITS ---
Progress Note: A&P Assessment and Plan (1) Acute kidney injury: Code(s): N17.9 - Acute kidney failure, unspecified Status: Acute Assessment and Plan: * due to prerenal factors along with obnstruction * renal function improving with ureteral stent placement and IVF hydration; cannot discount NSAID use as well * follow trend of labs and UOP (2) Hyperkalemia: Code(s): E87.5 - Hyperkalemia Status: Acute Assessment and Plan: * due to #1 * improving s/p medical management and IVFs * follow trend (3) Metabolic acidosis: Code(s): E87.2 - Acidosis Status: Acute Assessment and Plan: * due to #1 * improving/compensating with bicarb fluids * follow CO2 levels (4) Left ureteral calculus: Code(s): N20.1 - Calculus of ureter Status: Acute Assessment and Plan: * s/p ureteral stent placement * good urine output noted * Urology following (5) Left kidney mass: Code(s): N28.89 - Other specified disorders of kidney and ureter Status: Acute Assessment and Plan: * as noted by admission imaging * Urology following -- likely outpatient management (6) Essential hypertension: Code(s): I10 - Essential (primary) hypertension Status: Acute Assessment and Plan: * reasonable control at this time * follow trend of hemodynamics (7) Diabetes: Code(s): E11.9 - Type 2 diabetes mellitus without complications Status: Acute Assessment and Plan: * follow accuchecks * glycemic control Will continue to follow. Subjective Date/time seen: 12/28/20 14:31 Renal function continues to slowly improve with current therapy; no apparent distress to report at the time of my visit other than some mild nausea; no issues/events overnight or earlier this AM. Exam Narrative: General: WD/WN male in NAD Heart: normal S1 and S2; no rub Lungs: clear to auscultation Abdomen: soft, nontender, nondistended, positive bowel sounds Extremities: no cyanosis or clubbing; no edema Skin: warm and dry Objective Data Vital Signs Vital Signs: Vital Signs Temp Pulse Resp BP Pulse Ox 12/28/20 14:00 36.6 C 69 16 113/70 98 12/28/20 09:22 72 12/28/20 05:36 36.4 C 66 18 105/71 98 12/27/20 21:53 36.8 C 77 17 116/70 99 12/27/20 17:23 36.1 C L 72 18 99 Intake/Output Intake/Output: Intake & Output 12/25/20 12/26/20 12/27/20 12/28/20 23:59 23:59 23:59 23:59 Intake Total 200 3810 1805 Output Total 3050 1400 Balance 200 760 405 Meds/Results Medications: Active Medications Generic Name Dose Route Start Last Admin Trade Name Freq PRN Reason Stop Dose Admin Hydrocodone Bitart/Acetaminophen 1 tab 12/26/20 21:51 12/27/20 23:40 Hydrocodone/Acetaminophen (*Crx) 5-325 Mg Tablet PO 1 tab Q4H PRN Administration Pain Rated 4-6 Carvedilol 25 mg 12/26/20 23:20 12/28/20 09:22 Carvedilol 25 Mg Tablet PO 25 mg BIDWM MARGARITA Administration Dextrose 12.5 gm 12/26/20 17:04 Dextrose 50% 25 Gm/50 Ml Syringe IV PUSH PRN PRN Hypoglycemia Protocol Glucagon 1 mg 12/26/20 17:04
--- NOTE | 2020-12-28 15:33 | PM.IMPN ---
Progress Note: A&P Assessment and Plan (1) Acute kidney injury: Code(s): N17.9 - Acute kidney failure, unspecified Status: Acute Assessment and Plan: Precipitating etiology is not clear at this juncture with broad differential diagnosis. He does not appear overtly dehydrated though his blood pressures have been on the lower side of normal and his appetite has not been great lately. CT shows a left ureteral stone with mild hydroureteronephrosis though I doubt that is the main culprit. Urinalysis shows 1+ protein and 3+ blood which can be seen with nephritis. He has been taking ibuprofen 400 mg daily for quite some time. He is also on a thiazide diuretic as well as an REAGAN-inhibitor. He is diabetic and could have diabetic nephropathy though his diabetes has been historically very well controlled. Left kidney mass noted but is quite small. Renal ultrasound as well as several urine and blood tests have been ordered for further evaluation. Dr. Shane has been consulted and his input is greatly appreciated. Renal function is improved today continue IV hydration as ordered. Nephrology on board CK level is normal Baseline creatinine on September 22 was 1.3 Admission creatinine of 6.1 Currently at 4.[address] continue to monitor intake and output currently non-oliguric have made 1300 cc of urine output so far Feldman has been removed 12/27 Creatinine continues to improve down to 3.1 today (2) Hyperkalemia: Code(s): E87.5 - Hyperkalemia Status: Acute Assessment and Plan: Secondary to acute renal failure and metabolic acidosis. He was treated for hyperkalemia in the emergency department with repeat BMP pending at this time. No significant EKG changes though he has mild bradycardia. Hyperkalemia has resolved (3) Metabolic acidosis: Code(s): E87.2 - Acidosis Status: Acute Assessment and Plan: Presumably secondary to renal failure. Depending on ABG, may consider bicarbonate drip. Continue on bicarb drip This has improved Fluid per nephrology (4) Normocytic anemia: Code(s): D64.9 - Anemia, unspecified Status: Acute Assessment and Plan: Iron studies not suggestive of iron deficiency vitamin B12 is low folic acid is normal Hemoglobin slightly low today likely due to the hemodilution (5) Left ureteral calculus: Code(s): N20.1 - Calculus of ureter Status: Acute Assessment and Plan: 6 mm stone noted in the proximal left ureter with mild left hydro ureteral nephrosis. Patient has no symptoms of such. Neurology has been consulted for this and had a cystoscopy with stone extraction and stent placement (6) Left kidney mass: Code(s): N28.89 - Other specified disorders of kidney and ureter Status: Acute Assessment and Plan: 13 mm left kidney mass with interval increase when compared to scan in December 2013. Urology consulted and Dr. Ch follow-up as an outpatient basis (7) Essential hypertension: Code(s): I10 - Essential (primary) hypertension Status: Acute Assessment and Plan: Blood pressures were reviewed and they are stable, and fact on the low end of normal. Antihypertensives currently on hold. A1c of 7.1 (8) Type 2 diabetes mellitus without complications: Code(s): E11.9 - Type 2 diabetes mellitus without complications Status: Acute Assessment and Plan: Recent A1c was 6.7%. Hold metformin due to renal failure. Initiate sliding scale insulin, Accu-Cheks, and hypoglycemic protocol. Subjective Date/time seen: 12/28/20 15:33 Interval history: No new complaints hoping to go home. Denies abdominal pain or nausea vomiting tolerating diet urine catheter has been removed and urinating okay Review of Systems Review of Systems: All systems reviewed & are unremarkable except as noted in HPI and below (HPI) Exam Narrative: General: Well-developed male in no acute distr
[2020-12-28 17:14] VITALS: PULSE 72
[2020-12-28] MEDS: METOCLOPRAMIDE HCL INJ 10 MG/2 ML VIAL 5 MG IV PUSH (17:14)
[2020-12-28 17:56] LABS: Glucose Point of Care 138 mg/dl (65-105)
[2020-12-28 18:22] LABS: Albumin Level 3.9 g/dL (3.5-5.1); Anion Gap 7 mmol/L (8-16); Blood Urea Nitrogen 77 mg/dL (9-20); Calcium 8.9 mg/dL (8.4-10.2); Carbon Dioxide 25 mmol/L (22-30); Chloride 107 mmol/L (98-107); Estimated CRCL calculation 26 ml/min; Estimated Glomerular Filt Rate 25; Glucose 142 mg/dL (65-110); Phosphorus 4.4 mg/dL (2.5-4.5); Potassium 4.7 mmol/L (3.4-5.0); Sodium 139 mmol/L (137-145)
[2020-12-28 21:32] VITALS: BP 129/76; PULSE 59; RESP 18; TEMP 36.8; O2SAT 100
[2020-12-28 23:02] LABS: Glucose Point of Care 115 mg/dl (65-105)
[2020-12-29] MEDS: HYDROcodone/acetaminophen (*CRX) 5-325 MG TABLET 1 TAB PO (00:15)
[2020-12-29] MEDS: METOCLOPRAMIDE HCL INJ 10 MG/2 ML VIAL 5 MG IV PUSH ×2 (00:18→05:49)
[2020-12-29] MEDS: SODIUM BICARBONATE 8.4% 75 MEQ in SODIUM CHLORIDE 0.45% 1,000 ML 100 MEQ IV CONT (04:58)
[2020-12-29 05:32] VITALS: BP 117/71; PULSE 52; RESP 18; TEMP 36.6; O2SAT 98
[2020-12-29 06:45] LABS: Basophils Percent Auto 0.5 % (0.2-1.2); Eosinophils Absolute Auto 0.2 K/mm3 (0-0.3); Eosinophils Percent Auto 3.5 % (0-4.4); Hematocrit 24.7 % (42.0-52.0); Immature Granulocyte Absolute 0.01 K/mm3 (0.00-0.031); Immature Granulocyte Percent A 0.2 % (0-0.5); Lymphocytes Absolute Auto 1.76 K/mm3 (0.9-3.2); Mean Corpuscular HGB Conc 32.4 g/dl (32-36); Mean Corpuscular Volume 89.5 fl (80-100); Mean Platelet Volume 11.1 fl (7.4-10.4); Monocytes Absolute Auto 0.4 K/mm3 (0.1-0.6); Monocytes Percent Auto 9.6 % (2.6-8.5); Neutrophils Absolute Auto 1.9 K/mm3 (1.3-6.7); Neutrophils Percent Auto 45.2 % (45.5-73.1); Platelet Count Result 141 k/mm3 (150-375); Red Blood Count 2.76 M/mm3 (4.6-6.20); Red Cell Distribution Width 14.9 % (11.5-14.5); White Blood Count 4.3 K/mm3 (4.5-10.0)
[2020-12-29 07:09] LABS: Albumin Level 3.6 g/dL (3.5-5.1); Anion Gap 8 mmol/L (8-16); Blood Urea Nitrogen 66 mg/dL (9-20); Calcium 9.1 mg/dL (8.4-10.2); Carbon Dioxide 27 mmol/L (22-30); Chloride 102 mmol/L (98-107); Estimated CRCL calculation 28 ml/min; Estimated Glomerular Filt Rate 27; Glucose 106 mg/dL (65-110); Phosphorus 4.4 mg/dL (2.5-4.5); Potassium 4.1 mmol/L (3.4-5.0); Sodium 137 mmol/L (137-145)
[2020-12-29 08:47] LABS: Glucose Point of Care 97 mg/dl (65-105)
--- NOTE | 2020-12-29 10:16 | PM.PNNEP ---
Progress Note: A&P Assessment and Plan (1) Acute kidney injury: Code(s): N17.9 - Acute kidney failure, unspecified Status: Acute Assessment and Plan: continues to improve due to prerenal factors along with obnstruction renal function improving with ureteral stent placement and IVF hydration; cannot discount NSAID use as well follow trend of labs and UOP (2) Hyperkalemia: Code(s): E87.5 - Hyperkalemia Status: Resolved Assessment and Plan: due to #1 improving s/p medical management and IVFs follow trend (3) Metabolic acidosis: Code(s): E87.2 - Acidosis Status: Acute Assessment and Plan: resolved due to #1 s/p IV bicarb fluids follow CO2 levels (4) Left ureteral calculus: Code(s): N20.1 - Calculus of ureter Status: Acute Assessment and Plan: s/p ureteral stent placement good urine output noted Urology following (5) Left kidney mass: Code(s): N28.89 - Other specified disorders of kidney and ureter Status: Acute Assessment and Plan: as noted by admission imaging Urology following -- likely outpatient management (6) Essential hypertension: Code(s): I10 - Essential (primary) hypertension Status: Acute Assessment and Plan: reasonable control at this time follow trend of hemodynamics (7) Diabetes: Code(s): E11.9 - Type 2 diabetes mellitus without complications Status: Acute Assessment and Plan: follow accuchecks glycemic control Will continue to follow - not opposed to discharge from renal perspective; recommend checking renal function panel or BMP in a week to ensure renal function continues to improve. Subjective Date/time seen: 12/29/20 10:16 Appears to be doing quite well; acidosis has resolved and kidney function continues to improve with current therapy; no apparent issues or problems voiced at this time; no events overnight or earlier this AM; hoping for possible discharge today. Exam Narrative: General: WD/WN male in NAD Heart: normal S1 and S2; no rub Lungs: clear to auscultation Abdomen: soft, nontender, nondistended, positive bowel sounds Extremities: no cyanosis or clubbing; no edema Skin: warm and intact Objective Data Vital Signs Vital Signs: Vital Signs Temp Pulse Resp BP Pulse Ox 12/29/20 05:32 36.6 C 52 L 18 117/71 98 12/28/20 21:32 36.8 C 59 L 18 129/76 100 12/28/20 17:14 72 Intake/Output Intake/Output: Intake & Output 12/26/20 12/27/20 12/28/20 12/29/20 23:59 23:59 23:59 23:59 Intake Total 200 3810 3880 1325 Output Total 3050 1800 700 Balance 695 967 9288 625 Meds/Results Radiology Results: ITS Impressions Abdomen/Pelvis CT 12/26/20 15:31 IMPRESSION: 1. 6 mm stone in proximal left ureter with mild left hydronephrosis and hydroureter. 2. 13 mm left kidney mass that demonstrated contrast enhancement on 12/14/2013 suspicious for neoplasm with interval increase in size. Retrograde Pyelogram 12/26/20 20:17 IMPRESSION: Left internal urinary stent placement Abdomen X-Ray 12/27/20 15:59 IMPRESSION: 1. Left internal ureteral stent in expected position. No visible stone. Labs Labs: Laboratory Tests 12/29/20 05:59 12/29/20 05:59
--- NOTE | 2020-12-29 11:44 | PM.DS ---
DS: Admitting Diagnosis Admitting Diagnosis Abdominal pain DS: Discharge Diagnosis Discharge Diagnosis (1) Acute kidney injury: Code(s): N17.9 - Acute kidney failure, unspecified Status: Acute Assessment and Plan: Precipitating etiology is not clear at this juncture with broad differential diagnosis. He does not appear overtly dehydrated with his blood pressures have been on the lower side of normal and his appetite has not been great lately. CT shows a left ureteral stone with mild hydroureteronephrosis though I doubt that is the main culprit. Urinalysis shows 1+ protein and 3+ blood which can be seen with nephritis. He has been taking ibuprofen 400 mg daily for quite some time. He is also on a thiazide diuretic as well as an REAGAN-inhibitor. He is diabetic and could have diabetic nephropathy though his diabetes has been historically very well controlled. Left kidney mass noted but is quite small. Renal ultrasound as well as several urine and blood tests have been ordered for further evaluation. Dr. Shane has been consulted and his input is greatly appreciated. He was started on IV hydration bicarb drip in the beginning his admission creatinine was 6.1. Baseline creatinine on September 22 was 1.3 CK level came back normal. Knee is placed on a Feldman catheter. Urology was consulted for obstructing left ureteral stone and stent placement was made. He will continue to follow up with Urology as an outpatient basis for the ureteral stone which was not visible on the repeat KUB. His creatinine was followed with IV hydration and continue to improve every day with discharge creatinine of 2.4. His metabolic acidosis and hyperkalemia resolved along with improvement in his renal function. He is okay with discharge from renal standpoint. Will have a BMP repeated in 1 week results to PCP. I anticipate full renal recovery of his renal function if not he will need a follow-up referral to floor cleaner. (2) Hyperkalemia: Code(s): E87.5 - Hyperkalemia Status: Acute Assessment and Plan: Secondary to acute renal failure and metabolic acidosis. He was treated for hyperkalemia in the emergency department with repeat BMP with resolution. No significant EKG changes though he has mild bradycardia. (3) Metabolic acidosis: Code(s): E87.2 - Acidosis Status: Acute Assessment and Plan: Presumably secondary to renal failure. He was started on bicarb drip which was later tapered off. This is resolved with improvement in renal function by the time of discharge. (4) Normocytic anemia: Code(s): D64.9 - Anemia, unspecified Status: Acute Assessment and Plan: Iron studies not suggestive of iron deficiency vitamin B12 is low folic acid is normal Hemoglobin slightly low today likely due to the hemodilution. Continues to be low likely due to renal failure anticipated improvement slowly will repeat CBC in 1 week in continued monitoring as an outpatient basis (5) Left ureteral calculus: Code(s): N20.1 - Calculus of ureter Status: Acute Assessment and Plan: 6 mm stone noted in the proximal left ureter with mild left hydro ureteral nephrosis. Patient has no symptoms of such. Urology has been consulted for this and had a cystoscopy with stent placement. Follow-up CT planned for visualization of ureteral stone however was not accomplished due to renal dysfunction. He will be planned for outpatient ureteroscopy with laser lithotripsy as opposed to ESWL. He needs to follow up with Urology as an outpatient basis (6) Left kidney mass: Code(s): N28.89 - Other specified disorders of kidney and ureter Status: Acute Assessment and Plan: 13 mm left kidney mass with interval increase when compared to scan in December 2013. Urology consulted and Dr. Ch follow-up as an outpatient basis (7) Essential hypertension: Code(s): I10 - Essential (primary) hypertensio
[2020-12-29 11:54] LABS: Glucose Point of Care 158 mg/dl (65-105)
[2020-12-30 10:59] LABS: Anti Streptolysin O Screen 78 IU/mL (<200)
[2020-12-31 13:45] LABS: Complement Total CH50 >60 U/mL (31-60)
[2020-12-31 16:20] LABS: Chloride Rand Ur 55 mmol/L (32-290); Chloride/Creatinine Rand Ur 60 (23-275); Creatinine Random Urine 92 mg/dL (20-320)
[2020-12-31 21:50] LABS: ANCA Screen Negative (Negative)
[2021-01-02 10:05] LABS: Anti Glomerular Basement Memb <1.0 AI (<1.0)
== END 2020-12-29 13:00 | disposition home or self-care (01) | DRG 660 ==
LOC: ANHED 14:23 → ANHIMU 21:24 → ANH3MEDSUR 12-29 11:44 → ANHIMU 01-02 13:09
PROVIDERS: General Practice; Internal Medicine Nephrology; Physician Assistant; Urology; Admitting Provider Internal Medicine; Emergency Provider Emergency Medicine; PCP Internal Medicine; Visit Provider Internal Medicine
PROC: BT1FZZZ Fluoroscopy of Left Kidney, Ureter and Bladder (ICD-10-PCS; CPT 52352; principal; 2020-12-26 19:15)
DX: N17.9 Acute kidney failure, unspecified (principal); E87.2 Acidosis; N13.2 Hydronephrosis with renal and ureteral calculous obstruction; Z86.16 Personal history of COVID-19; M19.90 Unspecified osteoarthritis, unspecified site; I10 Essential (primary) hypertension; G47.33 Obstructive sleep apnea (adult) (pediatric); E11.9 Type 2 diabetes mellitus without complications; M10.9 Gout, unspecified; F12.90 Cannabis use, unspecified, uncomplicated; E87.5 Hyperkalemia; D64.9 Anemia, unspecified; N28.89 Other specified disorders of kidney and ureter
CPT/HCPCS: 36415; 36600; 74018; 74176; 74420; 80048; 80053; 80069; 81001; 82436; 82550; 82570; 82595; 82607; 82728; 82746; 82805; 82948; 83036; 83520; 83540; 83550; 83605; 83735; 84100; 84133; 84156; 84300; 84443; 85025; 85027; 85652; 85999; 86021; 86038; 86060; 86140; 86160; 86162; 93005; 96374; 96375; 99284; A9270; C1769; C1887; C2617; J0610; J0690; J1815; J2250; J2405; J2704; J2765; J3010; J7120; Q9966

== ENCOUNTER 2021-01-04 14:07 | Outpatient (CLI) | payer MEDICARE, SELFPAY ==
[2021-01-04 14:51] LABS: Basophils Percent Auto 0.6 % (0.2-1.2); Eosinophils Absolute Auto 0.2 K/mm3 (0-0.3); Eosinophils Percent Auto 3.7 % (0-4.4); Hematocrit 27.2 % (42.0-52.0); Hemoglobin 8.7 g/dL (14.0-18.0); Immature Granulocyte Absolute 0.02 K/mm3 (0.00-0.031); Immature Granulocyte Percent A 0.4 % (0-0.5); Lymphocytes Absolute Auto 1.61 K/mm3 (0.9-3.2); Lymphocytes Percent Auto 31.6 % (18.3-44.2); Mean Corpuscular Hemoglobin 29.4 pg (26-34); Mean Corpuscular Volume 91.9 fl (80-100); Mean Platelet Volume 10.7 fl (7.4-10.4); Monocytes Absolute Auto 0.4 K/mm3 (0.1-0.6); Neutrophils Absolute Auto 2.8 K/mm3 (1.3-6.7); Neutrophils Percent Auto 55.7 % (45.5-73.1); Platelet Count Result 225 k/mm3 (150-375); Red Blood Count 2.96 M/mm3 (4.6-6.20); Red Cell Distribution Width 14.8 % (11.5-14.5); White Blood Count 5.1 K/mm3 (4.5-10.0)
[2021-01-04 15:02] LABS: Anion Gap 8 mmol/L (8-16); Blood Urea Nitrogen 32 mg/dL (9-20); Calcium 8.8 mg/dL (8.4-10.2); Carbon Dioxide 24 mmol/L (22-30); Chloride 108 mmol/L (98-107); Estimated Glomerular Filt Rate 38; Glucose 121 mg/dL (65-110); Sodium 140 mmol/L (137-145)
[2021-01-04 15:06] LABS: CRP < 0.5 mg/dL (<1.0)
[2021-01-04 15:10] LABS: Erythrocyte Sedimentation Rate 102 mm/hr (0-20)
== END 2021-01-04 14:08 | disposition home or self-care (01) ==
PROVIDERS: PCP Internal Medicine; Referring Provider Physician Assistant Surgical; Visit Provider Internal Medicine
DX: T85.698A Other mechanical complication of other specified internal prosthetic devices, implants and grafts, initial encounter (principal); T84.039A Mechanical loosening of unspecified internal prosthetic joint, initial encounter
CPT/HCPCS: 36415; 80048; 85025; 85652; 86140

== ENCOUNTER 2021-01-11 02:29 | Day surgery (SDC) | payer MEDICARE, SELFPAY ==
[2021-01-11] VITALS (9 sets, daily range): BP systolic 102–151; BP diastolic 62–86; PULSE 53–71; RESP 10–16; TEMP 36.6–36.9; O2SAT 100; BMI 29.5
--- NOTE | ~2021-01-11 | XR_ITS ---
EXAMINATION: XR stent kub - surgery EXAM DATE: 01/11/2021 13:02 INDICATION: Left-sided stone extraction, possible stent. TECHNIQUE: Fluoroscopy used during XR stent kub - surgery performed by Dr. Lopez Ch MD. R adiologist was not present for the imaging or procedure. Total fluoroscopic time of 24 seconds. The DAP for this procedure was 404 radcm2. A total of 5 images sent to PACS from the exam. Comparison i s made to prior examination from 12/26/2020. FINDINGS: Images demonstrate a left-sided double-J ureteral stent in position. Hip replacements. Dale cified vasa deferentia, could indicate diabetes. Correlate with procedure note. IMPRESSION: Fluoroscopy used during left ureteral procedure. Reviewed, dictated and finalized at location A.
--- NOTE | 2021-01-11 07:13 | WPDHPUPDATE1 ---
History and Physical Update Update Date/Time: 01/11/21 07:13 History and Physical has been reviewed, including an updated exam of the patient. There are NO changes in the patient's condition. Risks, benefits, and alternatives have been discussed and questions answered. Patient agrees to proceed with procedure.
--- NOTE | 2021-01-11 07:20 | PM.HPGS ---
History of Present Illness History of Present Illness Consent: Risks, benefits, and alternatives have been discussed and questions answered. Patient agrees to proceed with procedure. Chief complaint: Left ureteral stone Narrative: Mohan Aviles is a 65 year old male recently admitted with acute kidney injury, metabolic acidosis and hyperkalemia. Evaluation revealed a 6 mm obstructing left proximal ureteral calculus. Ureteral stent was placed he now presents, after normalization of his kidney function, for definitive stone intervention. This was a noncalcified stone on KUB the to the decision for endoscopic approach. He also has a small atypical lesion in his left kidney which will need follow-up, serial imaging. Review of Systems Cardiovascular: Cardiovascular: Denies chest pain, Denies lightheadedness, Denies palpitations and Denies dyspnea Respiratory: Respiratory: Denies dyspnea Gastrointestinal: Gastrointestinal: Denies diarrhea, Denies nausea and Denies vomiting Genitourinary: Genitourinary: Denies hematuria and Denies dysuria Endocrine: Endocrine: Denies palpitations PMFSH Past Medical History Medical History Arthritis COVID-19 (10/2020) Essential hypertension Gout Obstructive sleep apnea Patient does not use CPAP. Type 2 diabetes mellitus without complications Hemoglobin A1c was 6.9% on 09/22/2020. Surgical History Surgical History History of bilateral carpal tunnel release History of bilateral hip replacements History of colonoscopy with polypectomy History of esophagogastroduodenoscopy With esophageal dilatation. History of repair of left rotator cuff History of Addison-en-Y gastric bypass Status post open reduction with internal fixation (ORIF) of fracture of ankle Right. Family History Family History Father , Father age 47 after a short illness and from a ?rare lung disease.? Lung disease Mother Heart disease Sibling No problems noted. Other Family history of arthritis Family history of heart disease in male family member before age 55 Social History Social History Social History: Surrogate decision maker: Kathy Aviles, spouse. Code status: Full code. Smoking status: Never smoker Second hand tobacco smoke exposure: No Alcohol intake: current Drinks per week: 1 Additional living arrangements comments: Resides in [place] with his . 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 Spiritual care concerns: No Meds Home Medications and Allergies Home Medications Medication Instructions Recorded Confirmed Type allopurinol 300 mg tablet 300 mg PO DAILY #90 tablet 02/12/20 12/26/20 Rx carvedilol 25 mg tablet 25 mg PO Q12H #180 tablet 03/22/20 12/26/20 Rx hydrocodone-acetaminophen 0.5 tablet PO Q12H PRN 12/26/20 12/26/20 History ondansetron 4 mg PO Q8H #30 tablet 12/29/20 Rx Allergies Allergy/AdvReac Type Severity Reaction Status Date / Time No Known Allergies Allergy Unknown Verified 12/26/20 18:51 Exam Const: General: no acute distress Resp: Effort & Inspection: normal respiratory effort GI: Inspection: non-distended GI Palp: No abdominal tenderness and No Guarding due to palpation present (GI) Auscultation: normal bowel sounds Assessment and Plan Assessment and plan (1) Left kidney mass: Code(s): N28.89 - Other specified disorders of kidney and ureter Status: Acute (2) Left ureteral calculus: Code(s): N20.1 - Calculus of ureter Status: Acute Assessment and Plan: Cystoscopy, left ureteroscopy with ureteral stone extraction, possible laser lithotripsy and possible left ureteral stent replacement
--- NOTE | 2021-01-11 11:15 | WPDANESEPPF ---
Anes - Initial Pre Proc Eval Procedure: Operation Date: 01/11/21 12:30 Proposed Procedures p Cystoscopy, Left Ureteroscopy, Stone Extraction, Possible Stent Placement - Lopez Ch MD s Holmium Laser Procedure - Lopez Ch MD Date/Time: 01/11/21 11:15 Surgeon: Lopez Ch MD Pre Op Diagnosis: Left ureteral stone Patient Data Age: 65 Gender: M Height: Weight: Allergies Allergy/AdvReac Type Severity Reaction Status Date / Time No Known Allergies Allergy Unknown Verified 12/26/20 18:51 Home Medications Medication Instructions Recorded Confirmed Type allopurinol 300 mg tablet 300 mg PO DAILY #90 tablet 02/12/20 12/26/20 Rx carvedilol 25 mg tablet 25 mg PO Q12H #180 tablet 03/22/20 12/26/20 Rx hydrocodone-acetaminophen 0.5 tablet PO Q12H PRN 12/26/20 12/26/20 History ondansetron 4 mg PO Q8H #30 tablet 12/29/20 Rx Patient hx anesthesia problems: none Family hx anesthesia problems: none PMFSH Past Medical History Medical History Arthritis COVID-19 (10/2020) Essential hypertension Gout Obstructive sleep apnea Patient does not use CPAP. Type 2 diabetes mellitus without complications Hemoglobin A1c was 6.9% on 09/22/2020. Surgical History Surgical History History of bilateral carpal tunnel release History of bilateral hip replacements History of colonoscopy with polypectomy History of esophagogastroduodenoscopy With esophageal dilatation. History of repair of left rotator cuff History of Addison-en-Y gastric bypass Status post open reduction with internal fixation (ORIF) of fracture of ankle Right. Family History Family History Father , Father age 47 after a short illness and from a ?rare lung disease.? Lung disease Mother Heart disease Sibling No problems noted. Other Family history of arthritis Family history of heart disease in male family member before age 55 Social History Social History Social History: Surrogate decision maker: Kathy Aviles, spouse. Code status: Full code. Smoking status: Never smoker Second hand tobacco smoke exposure: No Alcohol intake: current Drinks per week: 1 Additional living arrangements comments: Resides in [place] with his . 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 Spiritual care concerns: No Anes - Eval Final PreProcedure Day of Procedure 01/11/21 11:15 Patient weight: overweight Heart: regular rate and rhythm Lungs: clear to auscultation Airway: Mallampati scale class II Neurological: alert and oriented Last oral intake: >/= 8 hours ASA classification: III Emergent: no Anesthetic plan: proceed Anesthesia type and monitoring: general LMA and standard monitoring Informed Consent: The patient's anesthetic plan and its attendant risks and benefits were discussed with the patient/family/POA. Questions were solicited and answers provided to the satisfaction of the patient/family/POA.
[2021-01-11] MEDS: LACTATED RINGERS 1,000 ML 30 ML IV CONT (11:27)
[2021-01-11] MEDS: ceFAZolin 2 GM/D5W 50 ML 2 GM/50 ML BAG IVPB (12:20)
--- NOTE | 2021-01-11 13:03 | P.OP_ITS ---
Procedure Note - Detailed Date of Procedure 01/11/21 Pre-op Diagnosis Left ureteral stone Post-op Diagnosis same Procedure Performed Cystoscopy, left ureteral stent removal, left ureteroscopy with laser lithotripsy, stone extraction and ureteral stent placement Surgeon Lopez Ch MD Anesthesia general Description of Procedure The patient was brought to the operative suite where he is prepped and draped in a routine sterile fashion while in the dorsal lithotomy position after the uneventful induction of a general LMA anesthetic. A 19F rigid cystoscope was placed in the bladder. There are no urethral strictures. His prostatic urethra measures, approximately, 1.5cm with no median lobe enlargement. The bladder mucosa was endoscopically normal without hyperemia or neoplasm. There was a single, orthotopic ureteral orifice bilaterally. A 0.035 glidewire was advanced into the left renal pelvis under fluoroscopy. The distal ureter was dilated with an 8F/10F ureteral dilator. Ureteroscopy was undertaken with a short tapered semi-rigid ureteroscope. fairly sizable stone could not be extra cted with a basket. Using the 273 micron holmium laser I fractured at the multiple small pieces using a dusting technique. The larger pieces were extracted with a 1.9 F disposable basket.Due to the extent of this manipulation I did place a 4.8F double-J ureteral stent. The proximal coil of the stent was confirmed to be in the renal pelvis and the distal coil in the bladder. The patient's bladder was emptied and he was taken to the recovery room having tolerated this procedure well. Estimated Blood Loss 0 Drains Yes Packing No Pathology yes Complications No immediate complications Condition stable Disposition PACU
[2021-01-11 13:31] LABS: Glucose Point of Care 88 mg/dl (65-105)
== END 2021-01-11 14:54 | disposition home or self-care (01) ==
PROVIDERS: PCP Internal Medicine; Visit Provider Urology
PROC: (CPT 52352; principal; 2021-01-11 12:30)
PROC: (CPT 52356; 2021-01-11 12:30)
DX: N20.1 Calculus of ureter (principal); N28.89 Other specified disorders of kidney and ureter; I10 Essential (primary) hypertension; E11.9 Type 2 diabetes mellitus without complications; G47.33 Obstructive sleep apnea (adult) (pediatric); M10.9 Gout, unspecified; Z86.16 Personal history of COVID-19
CPT/HCPCS: 52356; 82365; 82948; 88300; A9270; C1769; C2617; J0690; J1100; J2405; J2704; J7120; Q9966

== ENCOUNTER 2021-07-27 14:25 | Outpatient (CLI) | payer MEDICARE, SELFPAY ==
--- NOTE | ~2021-07-27 | MR_ITS ---
EXAMINATION: MR abdomen wo/w con DATE: 07/27/2021 15:51 INDICATION: Left kidney mass. TECHNIQUE: Magnetic resonance imaging (MRI) of the abdomen was performed without and with 18 mL Multi Clemente intravenous contrast. Sequences included coronal T2-weighted FS FSE, coronal and axial FIESTA F S, coronal LAVA-flex, axial LAVA, axial T2-weighted FSE, axial T1-weighted dual-echo FSPGR, axial STI R FSE, and axial DWI. Postcontrast sequences included coronal LAVA-flex and a time course of axial LA VA. COMPARISON: CT abdomen and pelvis 12/26/2020 FINDINGS: The liver is normal. There are gallstones in the gallbladder, which is normal in size. The pancreas i s normal. There is a 9 mm cyst in the spleen. There is a small sliding hiatal hernia. There are surgi janey changes of the stomach. The adrenal glands are normal. There are cysts in the kidneys measuring u p to 1.7 cm on the right. There are hemorrhagic cysts in the kidneys measuring up to 2.0 cm on the le ft. There are no dilated loops of bowel. There are no pathologically enlarged lymph nodes. There is n o free intraperitoneal fluid. IMPRESSION: 1. Benign cysts in the kidneys. Reviewed, dictated and finalized at location A.
[2021-07-27 15:05] LABS: Estimated Glomerular Filt Rate 51
== END 2021-07-27 14:26 | disposition home or self-care (01) ==
LOC: ANHIMG 14:32
PROVIDERS: PCP Internal Medicine; Visit Provider Urology
DX: N28.1 Cyst of kidney, acquired (principal)
CPT/HCPCS: 74183; A9577

== ENCOUNTER 2021-11-07 16:07 | Outpatient (CLI) | payer MEDICARE, SELFPAY ==
--- NOTE | ~2021-11-07 | US_ITS ---
EXAMINATION: US renal BI DATE: 11/07/2021 16:51 INDICATION: N17.9 - Acute kidney failure, unspecified TECHNIQUE: Multiple grayscale and Doppler ultrasound images of the kidneys were obtained. COMPARISON: MR abdomen 07/27/2021 FINDINGS: The right kidney measures 12.6 x 4.7 x 5.8 cm. The left kidney measures 1.5 x 4.6 x 6.4 cm. The kidne ys demonstrate normal parenchymal echogenicity.No sonographic evidence of nephrolithiasis. No mass. N o hydronephrosis. The bladder is unremarkable. IMPRESSION: 1. Normal renal sonogram findings. Reviewed, dictated and finalized at location K.
== END 2021-11-07 16:08 | disposition home or self-care (01) ==
PROVIDERS: PCP Internal Medicine; Visit Provider Internal Medicine
DX: N17.9 Acute kidney failure, unspecified (principal)
CPT/HCPCS: 76775

== ENCOUNTER 2021-11-12 01:31 | Day surgery (SDC) | payer MEDICARE, SELFPAY ==
[2021-10-29 11:18] VITALS: BMI 27.9
--- NOTE | 2021-11-12 10:39 | WPDANESEPPF ---
Anes - Initial Pre Proc Eval Procedure: Operation Date: 11/12/21 13:45 Proposed Procedures p Screening Colonoscopy - Johnathan Cisneros MD Date/Time: 11/12/21 10:39 Surgeon: Johnathan Cisneros MD Pre Op Diagnosis: neoplasm screening Patient Data Age: 65 Gender: M Height: 1.8 m Weight: 91 kg Allergies Allergy/AdvReac Type Severity Reaction Status Date / Time No Known Allergies Allergy Unknown Verified 11/12/21 12:37 Home Medications Medication Instructions Recorded Confirmed Type allopurinol 300 mg tablet 300 mg PO DAILY #90 tabs 07/16/21 10/29/21 Rx hydrocodone 7.5 mg-acetaminophen 0.5 tablet PO Q12H PRN Pain #30 10/26/21 10/29/21 Rx 325 mg tablet tabs aspirin 81 mg tablet,delayed 81 mg PO DAILY 10/29/21 10/29/21 History release carvedilol 25 mg tablet 25 mg PO DAILY 10/29/21 10/29/21 History clotrimazole-betamethasone 1 1 applic topical PRN PRN Skin 10/29/21 10/29/21 History %-0.05 % topical cream Irritation metformin 500 mg tablet 500 mg PO BID 10/29/21 10/29/21 History valacyclovir 1 gram tablet 2,000 mg PO PRN PRN Cold Sores 10/29/21 10/29/21 History (Valtrex) hydrochlorothiazide 25 mg tablet 25 mg PO DAILY #90 tabs 10/31/21 Rx Patient hx anesthesia problems: none Family hx anesthesia problems: none Results Review: All pre-operative results and documents have been reviewed as part of the pre-operative evaluation. [facility] Past Medical History Medical History Arthritis COVID-19 (10/2020) Diabetes Essential hypertension Gout Obstructive sleep apnea Patient does not use CPAP. Type 2 diabetes mellitus without complications Hemoglobin A1c was 6.9% on 09/22/2020. Surgical History Surgical History History of bilateral carpal tunnel release History of bilateral hip replacements History of colonoscopy with polypectomy History of esophagogastroduodenoscopy With esophageal dilatation. History of repair of left rotator cuff History of Addison-en-Y gastric bypass Status post open reduction with internal fixation (ORIF) of fracture of ankle Right. Family History Family History Father , Father age 47 after a short illness and from a ?rare lung disease.? Lung disease Mother Heart disease Sibling No problems noted. Other Family history of arthritis Family history of heart disease in male family member before age 55 Social History Social History Social History: Surrogate decision maker: Kathy Aviles, spouse. Code status: Full code. Smoking status: Never smoker Second hand tobacco smoke exposure: No Alcohol intake: current Drinks per week: 1 Substance use: never Substance use type: does not use Living arrangements: with family Additional living arrangements comments: Resides in [place] with his . 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 Spiritual care concerns: No Anes - Eval Final PreProcedure Day of Procedure 11/12/21 10:39 Patient weight: overweight Heart: regular rate and rhythm Lungs: clear to auscultation Airway: Mallampati scale class II Neurological: alert and oriented Last oral intake: >/= 8 hours ASA classification: III Emergent: no Anesthetic plan: proceed Anesthesia type and monitoring: general GIVS and standard monitoring Results Review: All pre-operative results and documents have been reviewed as part of the pre-operative evaluation. Informed Consent: The patient's anesthetic plan and its attendant risks and benefits were discussed with the patient/family/POA. Questions were solicited and answers provided to the satisfaction of the patient/family/POA.
--- NOTE | 2021-11-12 12:35 | WPDGICN ---
Assessment and Plan Assessment and plan (1) Encounter for screening colonoscopy: Code(s): Z12.11 - Encounter for screening for malignant neoplasm of colon Status: Acute Assessment and Plan: screening colonoscopy will be performed today. GI Consult Note Consult date/time: 11/12/21 12:35 Reason for consult: Neoplasia screening. HPI: Mohan Aviles is a 65 year old male Presents for screening colonoscopy. Patient's current weight appetite bowel movements are normal. He denies abdominal pain. He has had no bleeding. Family history noncontributory. Previous colonoscopy by Dr. Mendez in 1999 13 was unremarkable. Patient presents today for screening colonoscopy. Patient gives a past medical history of gastric bypass surgery with a Addison-en-Y says procedure many years ago with success. Review of Systems Review of Systems: Review of systems noncontributory. [facility] Past Medical History Medical History Arthritis COVID-19 (10/2020) Diabetes Essential hypertension Gout Obstructive sleep apnea Patient does not use CPAP. Type 2 diabetes mellitus without complications Hemoglobin A1c was 6.9% on 09/22/2020. Surgical History Surgical History History of bilateral carpal tunnel release History of bilateral hip replacements History of colonoscopy with polypectomy History of esophagogastroduodenoscopy With esophageal dilatation. History of repair of left rotator cuff History of Addison-en-Y gastric bypass Status post open reduction with internal fixation (ORIF) of fracture of ankle Right. Family History Family History Father , Father age 47 after a short illness and from a ?rare lung disease.? Lung disease Mother Heart disease Sibling No problems noted. Other Family history of arthritis Family history of heart disease in male family member before age 55 Social History Social History Social History: Surrogate decision maker: Kathy Aviles, spouse. Code status: Full code. Smoking status: Never smoker Second hand tobacco smoke exposure: No Alcohol intake: current Drinks per week: 1 Substance use: never Substance use type: does not use Living arrangements: with family Additional living arrangements comments: Resides in [place] with his . 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 Spiritual care concerns: No Meds Home Medications and Allergies Home Medications Medication Instructions Recorded Confirmed Type allopurinol 300 mg tablet 300 mg PO DAILY #90 tabs 07/16/21 10/29/21 Rx hydrocodone 7.5 mg-acetaminophen 0.5 tablet PO Q12H PRN Pain #30 10/26/21 10/29/21 Rx 325 mg tablet tabs aspirin 81 mg tablet,delayed 81 mg PO DAILY 10/29/21 10/29/21 History release carvedilol 25 mg tablet 25 mg PO DAILY 10/29/21 10/29/21 History clotrimazole-betamethasone 1 1 applic topical PRN PRN Skin 10/29/21 10/29/21 History %-0.05 % topical cream Irritation metformin 500 mg tablet 500 mg PO BID 10/29/21 10/29/21 History valacyclovir 1 gram tablet 2,000 mg PO PRN PRN Cold Sores 10/29/21 10/29/21 History (Valtrex) hydrochlorothiazide 25 mg tablet 25 mg PO DAILY #90 tabs 10/31/21 Rx Allergies Allergy/AdvReac Type Severity Reaction Status Date / Time No Known Allergies Allergy Unknown Verified 11/12/21 12:37 Exam Narrative: Physical exam reveals patient to be alert. Vital signs stable. HEENT exam is unremarkable. Patient is anicteric. Lungs are clear to auscultation and percussion. Heart is without murmur or extra sounds. Abdominal exam bowel sounds present soft nontender with no organomegaly. Digital external rectal exam is normal.
[2021-11-12 12:38] VITALS: BP 154/93; PULSE 48; RESP 18; TEMP 36.4; O2SAT 100; BMI 27.9
[2021-11-12] MEDS: LACTATED RINGERS 1,000 ML 150 ML IV CONT (12:51)
[2021-11-12 12:52] LABS: Glucose Point of Care 120 mg/dl (65-105)
[2021-11-12 13:16] VITALS: BP 123/76; PULSE 52; RESP 14; O2SAT 99
[2021-11-12 13:26] VITALS: BP 115/76; PULSE 54; RESP 16; O2SAT 99
[2021-11-12 13:36] VITALS: BP 139/86; PULSE 56; RESP 15; O2SAT 100
--- NOTE | 2021-11-12 13:48 | SUR.PHASEII ---
Pt's HR 45-55. Pt asymptomatic. Occasional irregular beats. Dr. Anglin informed. Ok to d/c. Pt informed or rhythm and is to report if becomes symptomatic.
== END 2021-11-12 13:54 | disposition home or self-care (01) ==
PROVIDERS: PCP Internal Medicine; Visit Provider Internal Medicine Gastroenterology
PROC: 0DJD8ZZ Inspection of Lower Intestinal Tract, Via Natural or Artificial Opening Endoscopic (ICD-10-PCS; CPT 45378; principal; 2021-11-12 13:45)
DX: Z12.11 Encounter for screening for malignant neoplasm of colon (principal); E11.9 Type 2 diabetes mellitus without complications; I10 Essential (primary) hypertension; G47.33 Obstructive sleep apnea (adult) (pediatric); Z86.16 Personal history of COVID-19; M10.9 Gout, unspecified; Z79.82 Long term (current) use of aspirin
CPT/HCPCS: G0121; 82948; J2704; J7120

== ENCOUNTER 2022-12-11 10:26 | Outpatient (CLI) | payer MEDICARE, SELFPAY ==
--- NOTE | ~2022-12-11 | NM_ITS ---
EXAMINATION: NM bone 3 phase DATE: 12/11/2022 14:46 INDICATION: Mechanical complication of implant with right hip pain TECHNIQUE: 25 mCi Tc-99m HDP by intravenous route. Scintigrams of the pelvis were obtained in angiog raphic, blood pool, and delayed phases. COMPARISON: Bone scan dated 12/20/[address] abdomen and pelvis dated 12/26/2020 . No more recent imag ing available for comparison. FINDINGS: No foci of abnormal increased activity in the or proximal thighs on the lower abdomen, pelvis and pro ximal thighs on the angiographic or immediate blood pool images. On the delayed images there photopen ic defects consistent bilateral total hip arthroplasties. Significant increased asymmetric uptake at the distal tip of the right femoral component which is suspicious for loosening. Persistent nonspecif ic asymmetric increased uptake seen on the delayed images at the left supra-acetabular region which s uggests possibility of loosening although no significant periprosthetic lucency is evident on the CT images. IMPRESSION: 1. Interval progression of asymmetric prominent increased uptake at the distal tip of the femoral com ponent of a right total hip arthroplasty concerning for loosening. Correlate with right hip radiograp hs. 2. Unchanged nonspecific asymmetric increased uptake along the cephalad margin of the acetabular comp onent of a left total hip arthroplasty which suggests possibility of loosening orbital no correspondi ng periprosthetic lucency is seen at the bone arthroplasty interface on the prior CT. Infection or fr acture is considered unlikely given the absence of significant increased uptake on the angiographic a nd blood pool images or evident correlate on the CT images. Reviewed, dictated and finalized at location B. IMPRESSION: 1. Interval progression of asymmetric prominent increased uptake at the distal tip of the femoral component of a right total hip arthroplasty concerning for l oosening. Correlate with right hip radiographs. 2. Unchanged nonspecific asymmetric increased uptake along the cephalad margin of the acetabular component of a left total hip arthroplasty which suggests pos sibility of loosening orbital no corresponding periprosthetic lucency is seen a t the bone arthroplasty interface on the prior CT. Infection or fracture is con sidered unlikely given the absence of significant increased uptake on the angio graphic and blood pool images or evident correlate on the CT images.
== END 2022-12-11 10:27 | disposition home or self-care (01) ==
PROVIDERS: PCP Internal Medicine; Visit Provider Orthopaedic Surgery
DX: M25.551 Pain in right hip (principal)
CPT/HCPCS: 78315; A9503

== ENCOUNTER 2022-12-18 10:05 | Outpatient (CLI) | payer MEDICARE, SELFPAY ==
--- NOTE | ~2022-12-18 | XR_ITS ---
EXAMINATION: XR lg joint inject/asp w image DATE: 12/18/2022 11:41 INDICATION: Left hip pain TECHNIQUE: A time-out was performed to verify the patient's name, date of , and procedure to b e performed. The procedure including the risks, benefits, and alternatives was discussed with the pat ient. Risks discussed included bleeding and infection. The patient understood the risks and agreed to proceed. The skin overlying the left hip joint was prepped and draped in usual sterile fashion. An esthetic was administered with 1% lidocaine subcutaneously. A 22 G needle was advanced under fluoros copic guidance to contact the neck of the femoral component of a left total hip arthroplasty. 3 mL of dark maroon-colored fluid was aspirated. Subsequently 4 mL of 0.5% Marcaine was instilled. The needl e was removed and the entry site was cleaned and dressed. There were no immediate complications. Flu oroscopy exposure time was 0.3 minutes. The total number of images was 2. FINDINGS: Real-time fluoroscopy demonstrates the needle in the left hip joint. Patient's pain prior t o procedure:06/14. Patient's pain following the procedure: 05/14. IMPRESSION: 1. Successful left hip joint aspiration yielding 3 mL of dark maroon-colored fluid which was sent to the lab for Gram stain and cultures. 2. Successful left hip joint injection of local anesthetic with decrease in the patient's presenting pain. Reviewed, dictated and finalized at location A. IMPRESSION: 1. Successful left hip joint aspiration yielding 3 mL of dark maroon-colored fl uid which was sent to the lab for Gram stain and cultures. 2. Successful left hip joint injection of local anesthetic with decrease in the patient's presenting pain.
== END 2022-12-18 10:06 | disposition home or self-care (01) ==
PROVIDERS: PCP Internal Medicine; Visit Provider Orthopaedic Surgery
DX: T85.698A Other mechanical complication of other specified internal prosthetic devices, implants and grafts, initial encounter (principal); T84.039A Mechanical loosening of unspecified internal prosthetic joint, initial encounter; M70.62 Trochanteric bursitis, left hip
CPT/HCPCS: 20610; 77002; 87070; 87075; 87205

== ENCOUNTER 2023-05-14 15:58 | Emergency (ER) | payer MEDICARE, SELFPAY ==
--- NOTE | ~2023-05-14 | XR_ITS ---
EXAMINATION: XR chest 1V DATE: 05/14/2023 16:43 INDICATION: Fall. TECHNIQUE: A single frontal view of the chest was obtained. COMPARISON: Chest 2 views 10/24/2020 FINDINGS: A calcified right lung nodule is consistent with old granulomatous disease. No pleural effu eda or pneumothorax. The heart size is normal. IMPRESSION: 1. No acute cardiopulmonary disease. Reviewed, dictated and finalized at location A. IFIED COMPOSITES TECHNICIAN
--- NOTE | ~2023-05-14 | XR_ITS ---
EXAMINATION: XR femur LT min 2V DATE: 05/14/2023 16:43 INDICATION: Left thigh injury. TECHNIQUE: 2 views of left femur on 4 radiographs were obtained. COMPARISON: None. FINDINGS: There is a total left hip arthroplasty. There is an oblique periprosthetic fracture of femo ral diaphysis. The distal fracture fragment demonstrates medial and posterior displacement and angula tion and inward rotation. There is mild left knee osteoarthritis. IMPRESSION: 1. Displaced periprosthetic fracture of left femoral diaphysis. 2. Total left hip arthroplasty. Reviewed, dictated and finalized at location A. SYSTEMS ANALYST CONSULTANT
--- NOTE | ~2023-05-14 | XR_ITS ---
EXAMINATION: XR pelvis 1-2V DATE: 05/14/2023 16:43 INDICATION: Fall. Pelvis injury. TECHNIQUE: An anteroposterior view of the pelvis was obtained. COMPARISON: None. FINDINGS: There are bilateral total hip arthroplasties. No acute fracture. There is an old healed fra cture of right inferior pubic ramus. There is severe lumbar spondylosis. IMPRESSION: 1. Bilateral total hip arthroplasties. Reviewed, dictated and finalized at location A. ISTRY TEACHER
[2023-05-14 16:07] VITALS: BP 104/60; PULSE 66; RESP 16; TEMP 36.7; O2SAT 100
--- NOTE | 2023-05-14 16:15 | ECG_ITS ---
Measurements Intervals [place] Rate: 70 P: TX: 0 QRS: 37 QRSD: 78 T: 49 QT: 376 QTc: 406 Interpretive Statements SINUS OR ECTOPIC ATRIAL RHYTHM BASELINE ARTIFACT- I, II, III, AVR, AVL, AVF, V4-V6 BORDERLINE ECG COMPARED TO ECG 12/26/2020 13:42:42 HEART RATE HAS INCREASED Electronically Signed On 05-14-2023 19:02:12 APPIAN BPM DEVELOPER by Herrera Lizama D.O.
[2023-05-14 16:24] LABS: Basophils Absolute Auto 0.1 K/mm3 (0.0-0.1); Basophils Percent Auto 0.7 % (0.2-1.2); Eosinophils Absolute Auto 0.4 K/mm3 (0-0.3); Eosinophils Percent Auto 6.5 % (0-4.4); Hematocrit 27.7 % (42.0-52.0); Hemoglobin 8.2 g/dL (14.0-18.0); Immature Granulocyte Absolute 0.01 K/mm3 (0.00-0.031); Immature Granulocyte Percent A 0.1 % (0-0.5); Lymphocytes Absolute Auto 1.93 K/mm3 (0.9-3.2); Lymphocytes Percent Auto 28.5 % (18.3-44.2); Mean Corpuscular HGB Conc 29.6 g/dl (32-36); Mean Corpuscular Hemoglobin 27.2 pg (26-34); Monocytes Absolute Auto 0.7 K/mm3 (0.1-0.6); Monocytes Percent Auto 10.8 % (2.6-8.5); Neutrophils Absolute Auto 3.6 K/mm3 (1.3-6.7); Neutrophils Percent Auto 53.4 % (45.5-73.1); Platelet Count Result 358 k/mm3 (150-375); Red Blood Count 3.01 M/mm3 (4.6-6.20); Red Cell Distribution Width 14.3 % (11.5-14.5); White Blood Count 6.8 K/mm3 (4.5-10.0)
[2023-05-14] MEDS: MORPHINE SULFATE (*CRX) 4 MG/ML INJ IV PUSH (16:24)
[2023-05-14] MEDS: ONDANSETRON INJ 4 MG/2 ML VIAL IV PUSH ×2 (16:24→18:08)
[2023-05-14 16:34] LABS: Alanine Aminotransferase 13 U/L (6-50); Albumin Level 4.3 g/dL (3.5-5.1); Alkaline Phosphatase 93 U/L (38-126); Anion Gap 11 mmol/L (8-16); Aspartate Amino Transferase 18 U/L (17-59); Bilirubin,Total 0.3 mg/dL (0.2-1.3); Blood Urea Nitrogen 29 mg/dL (9-20); Calcium 9.1 mg/dL (8.4-10.2); Carbon Dioxide 19 mmol/L (22-30); Chloride 111 mmol/L (98-107); Creatine Kinase 61 U/L (55-170); Estimated CRCL calculation 50 ml/min; Estimated Glomerular Filt Rate 46; Glucose 112 mg/dL (65-110); Potassium 5.2 mmol/L (3.4-5.0); Sodium 141 mmol/L (137-145)
[2023-05-14 16:45] LABS: Platelet Estimate Adequate (Adequate); Schistocytes None Seen (NORMAL)
[2023-05-14 16:46] LABS: Hypochromasia 1+ (NORMAL)
--- NOTE | 2023-05-14 17:57 | ED.LOWEXIN ---
HPI - Extremity Injury (Lower) General Chief Complaint: Extremity Injury, Lower Stated Complaint: L femur deformity Time Seen by Provider: 05/14/23 16:00 Source: patient Mode of arrival: EMS Limitations: no limitations History of Present Illness HPI Narrative: 67-year-old with a history of hypertension, diabetes, CKD status post left hip arthroplasty, with revision and postop infection presents to the ER with a complaint of severe left hip pain. Patient states that he was trying to wear his socks and slipped and fell backwards on his left hip. He denied any headache neck injury. No loss of consciousness. Related Data Home Medications Medication Instructions Recorded Confirmed aspirin 81 mg tablet,delayed 81 mg PO DAILY 10/29/21 03/10/23 release diclofenac sodium 75 mg 75 mg PO BID 11/12/22 03/10/23 tablet,delayed release Allergies Allergy/AdvReac Type Severity Reaction Status Date / Time No Known Allergies Allergy Unknown Verified 12/10/22 14:54 Review of Systems Review of Systems: All systems reviewed & are unremarkable except as noted in HPI and below Constitutional: Constitutional: Reports no additional constitutional complaints Eyes: Eyes: Reports no additional eye complaints ENT: Reports system reviewed and no additional complaints, except as documented Cardiovascular: Cardiovascular: Reports no additional cardiovascular complaints Respiratory: Respiratory: Reports no additional respiratory complaints Gastrointestinal: Gastrointestinal: Reports no additional gastrointestinal complaints Musculoskeletal: Musculoskeletal: Reports as per HPI Integumentary/Breasts: Skin/Breast: Reports system reviewed and no additional complaints, except as docu Neurologic: Reports system reviewed and no additional complaints, except as documented PMFSH Past Medical History Medical History Acute hyperkalemia Acute kidney injury Acute renal failure Arthritis COVID-19 (10/2020) Diabetes Essential hypertension Gout Hyperkalemia Metabolic acidosis Obesity (BMI 30.0-34.9) Obstructive sleep apnea Patient does not use CPAP. Other dorsalgia Type 2 diabetes mellitus without complications Hemoglobin A1c was 6.9% on 09/22/2020. Surgical History Surgical History History of bilateral carpal tunnel release History of bilateral hip replacements History of colonoscopy with polypectomy History of esophagogastroduodenoscopy With esophageal dilatation. History of repair of left rotator cuff History of Addison-en-Y gastric bypass Status post open reduction with internal fixation (ORIF) of fracture of ankle Right. Family History Family History Father , Father age 47 after a short illness and from a ?rare lung disease.? Lung disease Mother Heart disease Sibling No problems noted. Other Family history of arthritis Family history of heart disease in male family member before age 55 Social History Social History Social History: Surrogate decision maker: Kathy Aviles, spouse. Code status: Full code. Smoking status: Never smoker Second hand tobacco smoke exposure: No Alcohol intake: current Drinks per week: 1 Substance use: never Substance use type: does not use Lack of Transportation: No Lack of Food: Never True Current Housing: I Have Housing Concerned About Future Housing: No Difficulty Paying Gas/Electric Bills: No Difficulty Paying for Meds: No Currently Unemployed: No Education: Trade/Vocational Certificate Difficulty w/ Childcare or Family Care: No Living arrangements: with family Additional living arrangements comments: Resides in [place] with his . 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
[2023-05-14] MEDS: HYDROmorphone HCL INJ (*CRX) 1 MG/ML SYR IV PUSH ×3 (18:07→20:05)
[2023-05-14 18:18] VITALS: BP 126/90; PULSE 75; RESP 18; O2SAT 100
[2023-05-14] MEDS: SODIUM CHLORIDE 0.9% IV 1,000 ML 150 ML IV CONT (18:28)
[2023-05-14 19:27] VITALS: BP 138/90; PULSE 80; RESP 15; O2SAT 100
== END 2023-05-14 20:17 | disposition short-term general hospital (02) ==
PROVIDERS: Emergency Provider Family Medicine; PCP Internal Medicine
DX: M97.02XA Periprosthetic fracture around internal prosthetic left hip joint, initial encounter (principal); W01.0XXA Fall on same level from slipping, tripping and stumbling without subsequent striking against object, initial encounter; Z96.642 Presence of left artificial hip joint; N18.9 Chronic kidney disease, unspecified; I12.9 Hypertensive chronic kidney disease with stage 1 through stage 4 chronic kidney disease, or unspecified chronic kidney disease; E11.22 Type 2 diabetes mellitus with diabetic chronic kidney disease; E66.9 Obesity, unspecified; Z68.32 Body mass index [BMI] 32.0-32.9, adult
CPT/HCPCS: 36415; 71045; 72170; 73552; 80053; 82550; 85025; 85610; 85730; 93005; 96361; 96374; 96375; 96376; 99285; J1170; J2270; J2405; J7030